=== PATIENT | male | born 1965 | race Caucasian/White ===

== ENCOUNTER 2025-06-22 16:04 | Outpatient (REF) | payer BC, SELFPAY ==
--- NOTE | 2025-06-22 16:07 | PFT_ITS ---
Flows: FEV1: 108 % of predicted at 4.09 L FVC: 113 % of predicted at 5.52 L FEV1/FVC: 74 % Bronchodilator response: Absent Volumes: Total lung capacity: 103 % of predicted at 7.71 L Residual volume: 102 % of predicted at 2.26 L Slow vital capacity: 102 % of predicted at 5.44 L Expiratory reserve volume: 113 % of predicted at 1.62 L Diffusion capacity: Normal Impression: No obstructive or restrictive ventilatory defect. No bronchodilator response. Normal pulmonary function test. MTDD
[2025-06-22 16:43] VITALS: PULSE 83
--- OUTSIDE RECORDS SUMMARY | 2025-06-22 20:05 | XMS_ITS ---
Author Name [facility] Organization Unknown History of Medication Use Medication Directions Dispensed Refills Start Date End Date Stat us sildenafil (VIAGRA) 50 MG tablet 08/28/2019 active atorvastatin (LIPITOR) 40 MG tablet 04/03/2018 active clopidogrel (PLAVIX) 75 mg tablet TAKE 1 TABLET BY MOUTH EVERY DAY. NEEDS APPOINTMENT WITH ORDER DESK CALLER FOR REFILLS 02/18/2018 12/21/2024 aborted aspirin 81 MG tablet TAKE 1 TABLET BY MOUTH EVERY DAY 02/17/2018 active metoprolol (TOPROL-XL) 25 MG 24 hr tablet TAKE 1/2 TABLET BY MOUTH EVERY DAY 02/17/2018 active lisinopril (PRINIVIL,ZESTRIL) 10 MG tablet TAKE 1 TABLET BY MOUTH EVERY DAY 02/16/2018 active nitroglycerin (NITROSTAT) 0.4 MG SL tablet nitroglycerin 0.4 mg sublingual tablet active Problems Problem Status Onset Date Problem Type Date of Resolution Source Decreased hearing of right ear active EncounterDiagnosisAct [facility] Immunizations Vaccine Date Source Lot Number Status Shingrix Recombinant Dose 02/20/2022 [facility] [id number] completed Shingrix Recombinant Dose 10/22/2021 [facility] [id number] completed Encounters Encounter Type Encounter Reason Primary Diagnosis Location Date Ambulatory Ear Complaint Unspecified hear ing loss, right ear [facility] 12/21/2024 Care Team Organization Name Specialty Phone Email Start Date End Da te [facility] Maxine Schmitz MD Primary Care 12/21/2024
--- OUTSIDE RECORDS SUMMARY | 2025-06-22 20:05 | XMS_ITS | Clinical Summary ---
Author Organization [facility] Address [address] [place] [id number] Phone Care Team Providers Care Network Lead Name Role Phone Maxine Schmitz MD Primary Care Provider [phone] Allergies No known active allergies Medications atorvastatin (LIPITOR) 40 MG tablet Take 40 mg by mouth every evening. 3 Active lisinopril (PRINIVIL,ZEST RIL) 20 MG tablet Take 1 tablet by mouth every morning. 3 Active metoprolol succinate (TOPROL-XL) 25 MG 24 hr tablet Take 1 tablet by mouth every morning. 3 Active nitroglycerin (NITROSTAT) 0.4 MG SL tablet nitroglycerin 0.4 mg sublingual tablet Active Active Problems No known active problems Social History Tobacco Use Types Packs/Day Years Used Date Smoking Tobacco: Never Assessed Education Answer Date Recorded Are you interested in more education? Not on oumar e 07/30/2023 Are you concerned about learning? Not on file 07/30/2023 No 07/30/2023 No 07/30/2023 Digital Access Answer Date Recorded No 07/30/2023 No 07/30/2023 Reliable internet access at home? Not on file 07/30/2023 Device with a working camera? Not on file Sex and Gender Information Value Date Recorded Sex Assigned at Not on file Legal Sex Male 5:25 PM EST Gender Identity Not on file Sexual Orientation Not on file Last Filed Vital Signs Vital Sign Reading Time Taken Comments Blood Pressure 137/91 07/30/2023 5:46 PM EST Pulse 71 07/30/2023 5:46 PM EST Temperature 36.9 C (98.4 F) 07/30/2023 5:46 PM EST Respiratory Rate 16 07/30/2023 5:46 PM EST Oxygen Saturation 96% 07/30/2023 5:46 PM EST Inhaled Oxygen Concentration - - Weight 99.8 kg (220 lb) 07/30/2023 5:46 PM EST Height 180.3 cm (5' 11 ) 07/30/2023 5:46 PM EST Body Mass Index 30.68 07/30/2023 5:46 PM EST Plan of Treatment Health Maintenance Due Date Last Done Comments Adult Td,Tdap Booster 1967 CREATININE LEVEL 1967 LIPID PANEL 1967 POTASSIUM LEVEL 1967 DEPRESSION SCREENING 1979 SMOKING Hx and SMOKELESS TOB ACCO SCREENING 1980 HEPATITIS C SCREENING 1985 HIV ONE-TIME SCREENING (18-6 5 YEARS) 1985 SCREENING FOR DIABETES 2002 COLOGUARD 2012 COLONOSCOPY 2012 COLORECTAL CANCER SCREENING 2012 FIT TEST 2012 FOBT 2012 SIGMOIDOSCOPY 2012 VIRTUAL COLONOSCOPY 2012 PNEUMOCOCCAL VACCINES (50+ y ears) (1 of 1 - PCV) 2017 ZOSTER VACCINES (1 of 2) 2017 INFLUENZA VACCINE (#1) 2025 COVID-19 VACCINE (1 - 2024-2 6 season) 2025 RSV VACCINE (1 - 1-dose 75+ series) 2042 HEPATITIS A VACCINES Aged Out No long er eligible based on patient's age to complete this topic HIB VACCINES Aged Out No longer eligi ble based on patient's age to complete this topic MENINGOCOCCAL VACCINES (ACWY) Aged Out No longer eligible based on patient's age to complete this topic MENINGOCOCCAL VACCINES (B) Aged Out N o longer eligible based on patient's age to complete this topic Medical Devices Not on file Insurance [facility] OUT [facility] PPO BLUE CROSS OUT OF STATE PPO BLUE CROSS OUT OF STATE PPO BLUE CROSS OUT OF STATE PPO BLUE CROSS OUT OF STATE PPO BLUE CROSS OUT OF STATE PPO Care Teams Network Lead Relationship Specialty Start Date End Date Maxine Schmitz MD [id number] [phone] PCP - General Family Medicine 07/30/23 Additional Source Comments The information contained in this document represents components of the legal health record. It is not the complete legal health record.[facility]
--- OUTSIDE RECORDS SUMMARY | 2025-06-22 20:06 | XMS_ITS | Data Portability ---
Author Organization [facility], Main Office Address [address] [place] [address] Care Team Providers Care Computer Systems Manager Name Role Phone KARAN PITTMAN Grinding Wheel Inspector JONG ROMAN Product Finisher [phone] NATHANAEL SMITH Product Finisher WILY HILL Primary Care Provider Assessment Encounter Date Assessment Date Assessment LastModified by Organization Details LastModified Time 02/01/2025 02/01/2025 Dyspnea Ordered: -NT-proBNP to assess for heart failure -Chest X-ray (2-view) to evaluate for pulmonary causes or cardiac silhouette changes -EKG to assess for ischemia or arrhythmia -Urinalysis to rule out systemic or infectious causes -Symptom: Positional air hunger, worse when supine, better when prone concerning for cardiac, diaphragmatic, or mechanical etiology -Ordered: Stress echocardiogram given history of CAD and atypical anginal equivalent symptoms (dyspnea without chest pain) -Will also get resting echo -Will consider sleep study and overnight O2 monitoring. -Also advised to call cardiology to discuss symptoms and see them for a visit. -Discussed with patient the signs/symptoms warranted for a return to office visit and/or an ER visit. Patient understood and agreed with the plan. Intolerant of Heat -Creatine kinase (CK) total to evaluate for statin-induced myopathy or inflammatory myopathy - No current B vitamin use rules out niacin-induced flushing -TSH/CBC/CMP done in PE, -Could consider ESR/CRP if sx persisted with pheo workup with 24hr metanephrine if symptoms persisted. Coronary Atherosclerosis -Renewed low-dose aspirin -Ongoing management with atorvastatin, metoprolol, lisinopril Allergic Rhinitis / Post-Nasal Drip -Started: Flonase Sensimist 2 sprays qHS 30 days -Started: Simply Saline daily use in the morning 30 days - If incomplete relief, consider adding loratadine or Josselin Follow-Up F/U in 2 months I have spent 45 minutes on this encounter. The time documented represents time spent on the day of the encounter preparing for and completing the visit. Time spent performing a physical exam, obtaining history from the patient, counseling/educati ng the patient in possible diagnosis and treatment options. This time is independent of any additional procedures/diagnos tic testing/interpreta tions. juan luiskar Not available 02/01/2025 12:43:26 04/11/2025 04/11/2025 Dyspnea / Atypic al Chest Pain: -Stat D-dimer (to evaluate for PE given travel history and ongoing symptoms). -Stat troponin (CAD risk, atypical chest pain, dyspnea). -Strong recommendation to call cinetechnician urgently for evaluation, given new chest pain. -Discussed emergency precautions: go to ER immediately if chest pain worsens, becomes persistent, or is associated with diaphoresis, syncope, or worsening dyspnea. -Sleep study with overnight O monitoring ordered. -Pulmonary Function Testing (PFTs) ordered to evaluate for mechanical or obstructive cause of dyspnea. Heat Intolerance / Systemic Symptoms -Sed rate (ESR) to complete pending labs. -24-hour urine metanephrines ordered to evaluate for pheochromocytoma. Allergic Rhinitis / Postnasal Drip -Prescribed Josselin daily for improved compliance. -Continue saline spray and may resume Flonase as tolerated. GERD / Lifestyle Contributions -Begin omeprazole 20 mg daily (OTC), 30 minutes before meals. -Lifestyle counseling: avoid alcohol, caffeine, nicotine, chocolate, spicy foods, garlic, onions, carbonated beverages, and acidic foods. Avoid lying down within 2 hours of meals. Sleep with head of bed elevated. -Counseled on limiting alcohol, particularly binge drinking, as a potential contributor to symptoms. Cardiovascular Risk Management -Continue aspirin, atorvastatin, metoprolol, lisinopril. -Reinforce importance of cardiology follow-up. Follow-Up -Telehealth in 2 months or sooner if symptoms persist or worsen. -Patient aware of ER precautions and agrees with the plan. [email or web address] Not available 04/11/2025 12:29:44 Plan of Treatment Reminders Order Date Submit Date Provider Last Modified By Organization Details Last Modified Time Details Appointments PE EST 2024 09:00A M Wily Hill MD Not available Not available Not available Lab meta neph rine + norm kamla ephr ine + 3-me thox ytyr [place] e pane l, 24h urin e 2024 025 IMTIAZ [facility], [address], [place], [address], 04/11/2025 11:16:59 meta neph rine , free , seru m or plas ma 2024 025 IMTIAZ [facility], [address], [place], [address], 04/17/2025 20:05:47 kavon chol [place]aca es, frac tion ated , urin e 2024 025 IMTIAZ [facility], [address], [place], [address], 04/11/2025 11:16:59 eryt hroc yte sedi ment atio n rate by west ergr en meth od 2024 025 IMTIAZ [facility] (Centralized Electronic Ordering - All Locations), Patient Can Go To The Location Of Their Choice, 04/11/2025 15:23:42 trop onin I, tiesha barron, perla zarate 2024 025 IMTIAZ [facility] (Centralized Electronic Ordering - All Locations), Patient Can Go To The Location Of Their Choice, 04/11/2025 11:17:14 D-tiesha topete, plas ofelia 2024 025 IMTIAZ [facility] (Centralized Electronic Ordering - All Locations), Patient Can Go To The Location Of Their Choice, 04/11/2025 15:23:41 CK (cre atin e bret se), tota l, seru m 2024 025 IMTIAZ [facility] (Centralized Electronic Ordering - All Locations), Patient Can Go To The Location Of Their Choice, 02/02/2025 06:07:43 pro BNP (pro B-ty pe natr iure tic pept teena) , seru m or plas ma 2024 025 IMTIAZ [facility] (Centralized Electronic Ordering - All Locations), Patient Can Go To The Location Of Their Choice, 02/02/2025 06:07:42 urin rupali is macr o (dip stic k) alexus guadalupe, urin e 2024 025 IMTIAZ [facility] (Centralized Electronic Ordering - All Locations), Patient Can Go To The Location Of Their Choice, 02/02/2025 06:07:42 lipi d alexus l, seru m 2023 024 [email or web address] [facility], [address], [place], [address], 08/09/2024 13:38:11 CBC w/ auto diff 2023 024 IMTIAZ [facility], [address], [place], [address], 01/01/2025 22:06:00 CMP, seru m or plas ma 2023 024 [email or web address] [facility] (Centralized Electronic Ordering - All Locations), Patient Can Go To The Location Of Their Choice, 09/17/2024 09:54:02 TSH, ultr a-se nsit james, seru m 2023 024 IMTIAZ [facility] (Centralized Electronic Ordering - All Locations), Patient Can Go To The Location Of Their Choice, 01/01/2025 22:06:02 PSA, seru m or plas ma 2023 024 [facility]MTIAZ [facility] (Centralized Electronic Ordering - All Locations), Patient Can Go To The Location Of Their Choice, 01/01/2025 22:06:01 magn esiu m, seru m or plas ma 2023 024 IMTIAZ [facility] (Centralized Electronic Ordering - All Locations), Patient Can Go To The Location Of Their Choice, [id number] 01/01/2025 22:06:03 lipi elliot aguilare l, seru m 2022 023 IMTIAZ [facility], [address], [place], [address], 03/18/2023 15:09:34 CBC w/ auto diff 2022 023 IMTIAZ [facility], [address], [place], [address], 03/18/2023 16:18:55 TSH, seru m or plas ma 2022 023 IMTIAZ [facility], [address], [place], [address], 03/18/2023 15:43:52 CMP, seru m or plas ma 2022 023 IMTIAZ [facility] (Centralized Electronic Ordering - All Locations), Patient Can Go To The Location Of Their Choice, 03/18/2023 15:09:31 magn esiu m, seru m or plas ma 2022 023 IMTIAZ [facility] (Centralized Electronic Ordering - All Locations), Patient Can Go To The Location Of Their Choice, 03/18/2023 15:09:35 Referral slee p medi cine refe rral - pls cons ider slee p stud y and over nigh t O2 carol miriam ng. 2024 025 [facility], [address], [place], [address], 04/11/2025 11:48:44 derm atol ogis t refe rral 2023 024 [email or web address] Not available 08/20/2024 09:04:[address] refe rral - Esta blis hed miguel angel ent need to get Foll ow up [place] nosc opy 2022 023 AMADOU [facility], [address] [place], [address], 03/25/2023 09:30:42 Procedures colo nosc opy scre enin g (PRO C) 2022 023 reji In-Office Order, Internal Use Only DO Not Attach Compendium DO Not Attach Compendium, Do Not Delete/merge, [id number] 03/25/2023 09:15:46 Surgeries None noble rded . Imaging PFT, comp lete 2024 025 reji [facility] (Imaging), [address] [place], [address], 04/14/2025 15:30:58 stre ss echo card iogr am 2024 025 [facility], [address] [place] [address], [address], [place], [address], 02/22/2025 14:25:36 XR, ches t, 2 view 2024 025 [facility], [address] [place], [address], 02/01/2025 13:14:58 elec troc ardi ogra m 2024 025 [email or web address] a In-Office Order, Internal Use Only DO Not Attach Compendium DO Not Attach Compendium, Do Not Delete/merge, [id number] 02/01/2025 11:19:35 US, echo card iogr am 2024 025 reji [facility], [address] [place] [address], [address], [place], [address], 02/07/2025 10:43:09 Medication Orders fexo fena dine 180 mg tabl et 2024 025 IMTIAZ [facility], [address] [place] [address], [address], 04/11/2025 11:16:57 omep portillo le 20 mg caps ule anthony yed rele ase 2024 025 [email or web address] os [facility], [address] [place] [address], [address], 05/09/2025 10:35:56 Flon ase Sens imis t 27.5 mcg/ actu atio n nasa l spra y,sofia spen ion 2024 025 [facility], [address] [place] [address], [address], 02/01/2025 11:14:21 Simp ly Sali ne 0.9 % nasa l spra y aero calvin 2024 025 [facility], [address] [place] [address], [address], 02/01/2025 11:14:21 Adul t Low Dose Aspi rin 81 mg tabl et,d elay ed rele ase 2024 025 [email or web address] [facility], [address] [place] [address], [address], 02/23/2025 11:28:52 keto cona zole 2 % topi daniel crea m 2024 025 [facility], [address] [place] [address], [address], 09/17/2024 15:54:12 vals rosey n 40 mg tabl et 2022 023 [email or web address] os [facility], [address] [place] [address], [address], 09/17/2024 15:23:22 Patient TargetsNo targets recorded. Patient Instructions Encounter Date Encounter Id Patient Instructions Last Modified By Organization Details Last Modified Time 10/15/2022 [id number] Well Visit 50 to 65: Care Instructions [email or web address] Not available 10/15/2022 16:04:13 learning about colon cancer ckokar Not available 10/15/2022 16:04:13 Starting a Weight-Loss Plan: Care Instructions [email or web address] Not available 10/15/2022 16:05:48 02/20/2024 [id number] Well Visit 50 to 65: Care Instructions [email or web address] Not available 02/20/2024 15:19:29 Prostate Cancer Screening ckokar Not available 02/20/2024 15:19:28 Starting a Weight-Loss Plan: Care Instructions [email or web address] Not available 02/20/2024 15:19:28 09/17/2024 [id number] high blood pressure: care instructions [email or web address] Not available 09/17/2024 15:54:10 learning about high blood pressure ckokar Not available 09/17/2024 15:54:10 02/01/2025 [id number] allergies: care instructions ckokar Not available 02/01/2025 11:00:21 04/11/2025 [id number] allergies: care instructions [email or web address] Not available 04/11/2025 11:16:55 methacholine challenge* [email or web address] Not available 04/11/2025 11:43:47 Reason for Referral Grinding Wheel Inspector Referral for Screening for malignant neoplasm of colon Established patient need to get Follow up Colonoscopy Referring Physician: Wily [facility] Medicine, Encounter Date: 10/15/2022 Freight Service Inspector Referral for M elanocytic nevus of skin Referring Physician: Wily Hill [facility] Medicine, Encounter Date: 02/20/2024 Sleep Medicine Referral for Dyspnea pls consider sleep study and overnight O2 monitoring. Referring Physician: Wily Hill [facility] Medicine, Encounter Date: 04/11/2025 Results Created Date Observation Date Name Description Value Unit Range Abnormal Flag Note LastModifiedBy Organization Detail LastModifiedTime 03/18/20 23 03/18/2023 COMPR EHENS JAMES METAB OLIC PANL glucose 108 mg/dL (70-99 ) high Not Available [facility] (Centralized Electronic Ordering - All Locations) Patient Can Go To The Location Of Their Choice, 03/18/2023 15:09:31 03/18/2003/18/2023 COMPR EHENS JAMES METAB OLIC PANL BUN 12 mg/dL (6-20) Not Available [facility] (Centralized Electronic Ordering - All Locations) Patient Can Go To The Location Of Their Choice, 03/18/2023 15:09:03/18/2003/18/2023 COMPR EHENS JAMES METAB OLIC PANL creatinine 1.1 mg/dL (0.7-1 .2) Not Available [facility] (Centralized Electronic Ordering - All Locations) Patient Can Go To The Location Of Their Choice, 03/18/2023 15:09:03/18/2003/18/2023 COMPR EHENS JAMES METAB OLIC PANL sodium 135 mmol/ L (133-1 45) Not Available [facility] (Centralized Electronic Ordering - All Locations) Patient Can Go To The Location Of Their Choice, 03/18/2023 15:09:31 03/18/2003/18/2023 COMPR EHENS JAMES METAB OLIC PANL potassium 4.1 mmol/ L (3.6-5 .2) Not Available [facility] (Centralized Electronic Ordering - All Locations) Patient Can Go To The Location Of Their Choice, 03/18/2023 15:09:31 03/18/2003/18/2023 COMPR EHENS JAMES METAB OLIC PANL chloride 103 mmol/ L (98-10 7) Not Available [facility] (Centralized Electronic Ordering - All Locations) Patient Can Go To The Location Of Their Choice, 03/18/2023 15:09:31 03/18/2003/18/2023 COMPR EHENS JAMES METAB OLIC PANL bicarbonate 24 mmol/ L (22-29 ) Not Available [facility] (Centralized Electronic Ordering - All Locations) Patient Can Go To The Location Of Their Choice, 03/18/2023 15:09:31 03/18/2003/18/2023 COMPR EHENS JAMES METAB OLIC PANL anion gap 8 (4-17) Not Available [facility] (Centralized Electronic Ordering - All Locations) Patient Can Go To The Location Of Their Choice, 03/18/2023 15:09:31 03/18/2003/18/2023 COMPR EHENS JAMES METAB OLIC PANL albumin 4.5 gm/dL (3.4-4 .8) Not Available [facility] (Centralized Electronic Ordering - All Locations) Patient Can Go To The Location Of Their Choice, 03/18/2023 15:09:31 03/18/2003/18/2023 COMPR EHENS JAMES METAB OLIC PANL calcium 9.2 mg/dL (8.6-1 0.5) Not Available [facility] (Centralized Electronic Ordering - All Locations) Patient Can Go To The Location Of Their Choice, 03/18/2023 15:09:03/18/2003/18/2023 COMPR EHENS JAMES METAB OLIC PANL bilirubin,to theron 1.3 mg/dL (0-1.2 ) high Not Available [facility] (Centralized Electronic Ordering - All Locations) Patient Can Go To The Location Of Their Choice, 03/18/2023 15:09:03/18/2003/18/2023 COMPR EHENS JAMES METAB OLIC PANL total protein 6.4 gm/dL (6.2-8 .2) Not Available [facility] (Centralized Electronic Ordering - All Locations) Patient Can Go To The Location Of Their Choice, 03/18/2023 15:09:31 03/18/2003/18/2023 COMPR EHENS JAMES METAB OLIC PANL Ag ratio 2.4 Not Available [facility] (Centralized Electronic Ordering - All Locations) Patient Can Go To The Location Of Their Choice, 03/18/2023 15:09:31 03/18/2003/18/2023 COMPR EHENS JAMES METAB OLIC PANL AST 32 U/L (0-40) Not Available [facility] (Centralized Electronic Ordering - All Locations) Patient Can Go To The Location Of Their Choice, 03/18/2023 15:09:31 03/18/2003/18/2023 COMPR EHENS JAMES METAB OLIC PANL alk phos 114 U/L (40-12 9) Not Available [facility] (Centralized Electronic Ordering - All Locations) Patient Can Go To The Location Of Their Choice, 03/18/2023 15:09:31 03/18/2003/18/2023 COMPR EHENS JAMES METAB OLIC PANL ALT 51 U/L (0-41) high Not Available [facility] (Centralized Electronic Ordering - All Locations) Patient Can Go To The Location Of Their Choice, 03/18/2023 15:09:31 03/18/20 23 03/18/2023 COMPR EHENS JAMES METAB OLIC PANL estimated GFR creatinine 84 mL/mi n/1.7 3_M2 Creat inine based estim ated glome rular filtr ation (eGFR ) in adult s is calcu lated using the Natio nal Kidne y Found ation recom rebecca d 2020 CKD-E PI equat ion. Estim ates GFR from serum creat inine , age and sex. Not Available [facility] (Centralized Electronic Ordering - All Locations) Patient Can Go To The Location Of Their Choice, 03/18/2023 15:09:31 03/18/2003/18/2023 LIPID PANEL cholesterol, total 92 mg/dL (<200) Not Available [facility] ([facility] - All Locations) Patient Can Go To The Location Of Their Choice, 03/18/2023 15:09:34 03/18/2003/18/2023 LIPID PANEL triglyceride 86 mg/dL (<150) Not Available [facility]) Patient Can Go To The Location Of Their Choice, 03/18/2023 15:09:34 03/18/2003/18/2023 LIPID PANEL HDL chol 36 mg/dL (>39) low Not Available [facility] (Centralized Electronic Ordering - All Locations) Patient Can Go To The Location Of Their Choice, 03/18/2023 15:09:34 03/18/20 23 03/18/2023 LIPID PANEL LDL cholesterol, calculated 39 mg/dL (0-130 ) Not Available [facility] (Centralized Electronic Ordering - All Locations) Patient Can Go To The Location Of Their Choice, 03/18/2023 15:09:34 03/18/2003/18/2023 LIPID PANEL non HDL cholesterol (calc) 56 mg/dL (<160) Not Available [facility] ([facility] Ordering - All Locations) Patient Can Go To The Location Of Their Choice, 03/18/2023 15:09:34 03/18/2003/18/2023 MAGNE SIUM magnesium 2.1 mg/dL (1.6-2 .3) Not Available [facility] (Centralized Electronic Ordering - All Locations) Patient Can Go To The Location Of Their Choice, 03/18/2023 15:09:35 03/18/2003/18/2023 TSH WITH REFLE X TO FT4 TSH 2.27 uIU/m L (0.4-4 .2) Not Available [facility] (Centralized Electronic Ordering - All Locations) Patient Can Go To The Location Of Their Choice, 03/18/2023 15:43:52 03/18/2003/18/2023 COMPL ETE CBC WITH DIFF WBC 7.0 K/mm3 (4.0-1 1.0) Not Available [facility] (Centralized Electronic Ordering - All Locations) Patient Can Go To The Location Of Their Choice, 03/18/2023 16:18:55 03/18/2003/18/2023 COMPL ETE CBC WITH DIFF RBC 4.92 M/mm3 (4.70- 6.10) Not Available [facility] (Centralized Electronic Ordering - All Locations) Patient Can Go To The Location Of Their Choice, 03/18/2023 16:18:55 03/18/2003/18/2023 COMPL ETE CBC WITH DIFF HGB 15.4 gm/dL (13.7- 17.1) Not Available [facility] (Centralized Electronic Ordering - All Locations) Patient Can Go To The Location Of Their Choice, 03/18/2023 16:18:55 03/18/2003/18/2023 COMPL ETE CBC WITH DIFF HCT 43.7 % (40.5- 50.0) Not Available [facility] (Centralized Electronic Ordering - All Locations) Patient Can Go To The Location Of Their Choice, 03/18/2023 16:18:55 03/18/2003/18/2023 COMPL ETE CBC WITH DIFF MCV 88.8 fL (80.0- 94.0) Not Available [facility] (Centralized Electronic Ordering - All Locations) Patient Can Go To The Location Of Their Choice, 03/18/2023 16:18:55 03/18/2003/18/2023 COMPL ETE CBC WITH DIFF MCH 31.3 pg (27.0- 34.0) Not Available [facility] (Centralized Electronic Ordering - All Locations) Patient Can Go To The Location Of Their Choice, 03/18/2023 16:18:55 03/18/2003/18/2023 COMPL ETE CBC WITH DIFF MCHC 35.2 g/dL (33.0- 37.0) Not Available [facility] (Centralized Electronic Ordering - All Locations) Patient Can Go To The Location Of Their Choice, 03/18/2023 16:18:55 03/18/2003/18/2023 COMPL ETE CBC WITH DIFF plt 174 K/mm3 (150-4 60) Not Available [facility] (Centralized Electronic Ordering - All Locations) Patient Can Go To The Location Of Their Choice, 03/18/2023 16:18:55 03/18/2003/18/2023 COMPL ETE CBC WITH DIFF RDW-SD 41.3 fL (<47.0 ) Not Available [facility] (Centralized Electronic Ordering - All Locations) Patient Can Go To The Location Of Their Choice, 03/18/2023 16:18:55 03/18/2003/18/2023 COMPL ETE CBC WITH DIFF MPV 11.0 fL (9.4-1 2.4) Not Available [facility] (Centralized Electronic Ordering - All Locations) Patient Can Go To The Location Of Their Choice, 03/18/2023 16:18:55 03/18/2003/18/2023 COMPL ETE CBC WITH DIFF automated NRBC 0.0 #/100 _WBC' s Not Available [facility] (Centralized Electronic Ordering - All Locations) Patient Can Go To The Location Of Their Choice, 03/18/2023 16:18:55 03/18/2003/18/2023 COMPL ETE CBC WITH DIFF abs. NRBC 0.0 K/mm3 Not Available [facility] (Centralized Electronic Ordering - All Locations) Patient Can Go To The Location Of Their Choice, 03/18/2023 16:18:55 03/18/2003/18/2023 COMPL ETE CBC WITH DIFF neut # 4.4 K/mm3 (1.3-7 .0) Not Available [facility] (Centralized Electronic Ordering - All Locations) Patient Can Go To The Location Of Their Choice, 03/18/2023 16:18:55 03/18/2003/18/2023 COMPL ETE CBC WITH DIFF lymph # 1.6 K/mm3 (0.8-3 .1) Not Available [facility] (Centralized Electronic Ordering - All Locations) Patient Can Go To The Location Of Their Choice, 03/18/2023 16:18:55 03/18/2003/18/2023 COMPL ETE CBC WITH DIFF mono# 0.7 K/mm3 (0.4-1 .3) Not Available [facility] (Centralized Electronic Ordering - All Locations) Patient Can Go To The Location Of Their Choice, 03/18/2023 16:18:55 03/18/2003/18/2023 COMPL ETE CBC WITH DIFF eo # 0.2 K/mm3 (0.0-0 .4) Not Available [facility] (Centralized Electronic Ordering - All Locations) Patient Can Go To The Location Of Their Choice, 03/18/2023 16:18:55 03/18/2003/18/2023 COMPL ETE CBC WITH DIFF baso # 0.1 K/mm3 (0.0-0 .1) Not Available [facility] (Centralized [facility] Ordering - All Locations) Patient Can Go To The Location Of Their Choice, 03/18/2023 16:18:55 03/18/2003/18/2023 COMPL ETE CBC WITH DIFF abs. imm gran 0.0 K/mm3 Not Available [facility] ([facility] - All Locations) Patient Can Go To The Location Of Their Choice, 03/18/2023 16:18:55 03/18/2003/18/2023 COMPL ETE CBC WITH DIFF neut 63.1 % (44-76 ) Not Available [facility] (Centralized [facility] Ordering - All Locations) Patient Can Go To The Location Of Their Choice, 03/18/2023 16:18:55 03/18/2003/18/2023 COMPL ETE CBC WITH DIFF lymph 22.8 % (15-43 ) Not Available [facility] (Centralized [facility] Ordering - All Locations) Patient Can Go To The Location Of Their Choice, 03/18/2023 16:18:55 03/18/2003/18/2023 COMPL ETE CBC WITH DIFF monocyte 9.8 % (4.5-1 0.5) Not Available [facility] (Centralized [facility] Ordering - All Locations) Patient Can Go To The Location Of Their Choice, 03/18/2023 16:18:55 03/18/2003/18/2023 COMPL ETE CBC WITH DIFF eo 3.0 % (0-6) Not Available [facility] (Centralized Electronic Ordering - All Locations) Patient Can Go To The Location Of Their Choice, 03/18/2023 16:18:55 03/18/2003/18/2023 COMPL ETE CBC WITH DIFF baso 0.9 % (0-2) Not Available [facility] (Centralized Electronic Ordering - All Locations) Patient Can Go To The Location Of Their Choice, 03/18/2023 16:18:55 03/18/2003/18/2023 COMPL ETE CBC WITH DIFF imm gran 0.4 % Not Available [facility] (Centralized Electronic Ordering - All Locations) Patient Can Go To The Location Of Their Choice, 03/18/2023 16:18:55 03/18/2003/19/2023 HAPTO GLOBI N haptoglobin 109 mg/dL (30-20 0) Not Available [facility] (Centralized [facility] Ordering - All Locations) Patient Can Go To The Location Of Their Choice, 03/19/2023 06:26:26 03/18/2003/19/2023 LDH LDH 187 U/L (94-25 0) Sampl e sligh tly hemol yzed. Resul ts may be false ly eleva guilherme due to hemol ysis. Not Available [facility] (Centralized Electronic Ordering - All Locations) Patient Can Go To The Location Of Their Choice, 03/19/2023 06:26:27 03/18/2003/19/2023 RETIC ULOCY TE COUNT retic % 2.5 % (0.9-2 .1) high Not Available [facility] (Centralized Electronic Ordering - All Locations) Patient Can Go To The Location Of Their Choice, 03/19/2023 06:33:01 03/18/2003/19/2023 RETIC ULOCY TE COUNT reticulocyte count, corrected 2.4 % (0.9-2 .1) high Not Available [facility] (Centralized Electronic Ordering - All Locations) Patient Can Go To The Location Of Their Choice, 03/19/2023 06:33:01 03/18/2003/19/2023 RETIC ULOCY TE COUNT reticulocyte production index 2.4 % (1.0-2 .0) high Not Available [facility] (Centralized Electronic Ordering - All Locations) Patient Can Go To The Location Of Their Choice, 03/19/2023 06:33:01 03/18/2003/19/2023 TOTAL AND DIREC T BILIR UBIN bili total (with direct) 1.3 mg/dL (0-1.2 ) high Not Available [facility] (Centralized Electronic Ordering - All Locations) Patient Can Go To The Location Of Their Choice, 03/19/2023 07:08:08 03/18/2003/19/2023 TOTAL AND DIREC T BILIR UBIN bilirubin, direct 0.3 mg/dL (0-0.3 ) Not Available [facility] (Centralized Electronic Ordering - All Locations) Patient Can Go To The Location Of Their Choice, 03/19/2023 07:08:08 03/18/2003/19/2023 TOTAL AND DIREC T BILIR UBIN indirect bilirubin 1.0 mg/dL (0.0-0 .7) high Not Available [facility] (Centralized Electronic Ordering - All Locations) Patient Can Go To The Location Of Their Choice, 03/19/2023 07:08:08 03/18/2003/19/2023 HEMOG LOBIN A1C hemoglobin A1C 5.0 % (4.0-5 .6) MONIT ORING : In known diabe tic patie nts, hemog lobin A1c targe ts shoul d be discu ssed with healt h care provi arnold. DIAGN OSTIC USE: The Ameri can Diabe daisy Assoc iatio n (ADA) and the World Healt h Organ izati on (WHO) recom mend the use of HbA1c to diagn ose diabe daisy using a thres hold of 6.5%. Patie nts who have an HbA1c betwe en 5.7% and 6.4% are consi dered at incre ased risk for devel oping diabe daisy in the twan TURNERCATRACHITA ON: False ly low HbA1c resul ts may be obser valeria in patie nts with hemol ytic anemi a, homoz ygous forms of abnor mal hemog lobin (e.g. SS, CC, SC), pregn chioma, recen t blood loss or hemog lobin F great er than 7%. Fruct osami ne may be used as an alter angel test in these cases . REFER ENCE: ADA: [facility] ards of Medic al Care in Diabe daisy 2019, The Journ al of Clini daniel and Appli ed [facility] and Educa tion Volum e 43, Suppl ement 1 Not Available [facility] (Centralized Electronic Ordering - All Locations) Patient Can Go To The Location Of Their Choice, 03/19/2023 08:50:07 09/02/1909/02/2023 GGTP ggtp 35 U/L (8-61) Not Available [facility] (Centralized Electronic Ordering - All Locations) Patient Can Go To The Location Of Their Choice, 09/02/2023 23:09:00 09/02/1909/02/2023 HEPAT IC FUNCT ION PANEL bilirubin,to theron 1.1 mg/dL (0-1.2 ) Not Available [facility] (Centralized Electronic Ordering - All Locations) Patient Can Go To The Location Of Their Choice, 09/02/2023 23:09:02 09/02/1909/02/2023 HEPAT IC FUNCT ION PANEL bilirubin, direct 0.3 mg/dL (0-0.3 ) Not Available [facility] (Centralized Electronic Ordering - All Locations) Patient Can Go To The Location Of Their Choice, 09/02/2023 23:09:02 09/02/1909/02/2023 HEPAT IC FUNCT ION PANEL indirect bilirubin 0.8 mg/dL (0.0-0 .7) high Not Available [facility] (Centralized Electronic Ordering - All Locations) Patient Can Go To The Location Of Their Choice, 09/02/2023 23:09:02 09/02/19 24 09/02/2023 HEPAT IC FUNCT ION PANEL albumin 4.9 gm/dL (3.4-4 .8) high Not Available [facility] (Centralized Electronic Ordering - All Locations) Patient Can Go To The Location Of Their Choice, 09/02/2023 23:09:02 09/02/19 24 09/02/2023 HEPAT IC FUNCT ION PANEL AST 39 U/L (0-40) Not Available [facility] (Centralized Electronic Ordering - All Locations) Patient Can Go To The Location Of Their Choice, 09/02/2023 23:09:02 09/02/19 24 09/02/2023 HEPAT IC FUNCT ION PANEL ALT 61 U/L (0-41) high Not Available [facility] (Centralized Electronic Ordering - All Locations) Patient Can Go To The Location Of Their Choice, 09/02/2023 23:09:02 09/02/19 24 09/02/2023 HEPAT IC FUNCT ION PANEL alk phos 123 U/L (40-12 9) Not Available [facility] (Centralized Electronic Ordering - All Locations) Patient Can Go To The Location Of Their Choice, 09/02/2023 23:09:02 09/02/1909/02/2023 HEPAT IC FUNCT ION PANEL total protein 7.2 gm/dL (6.2-8 .2) Not Available [facility] (Centralized Electronic Ordering - All Locations) Patient Can Go To The Location Of Their Choice, 09/02/2023 23:09:02 09/03/1909/04/2023 URINE BILIR UBIN urine bilirubin NEGATI VE (neg) Not Available [facility] (Centralized Electronic Ordering - All Locations) Patient Can Go To The Location Of Their Choice, 09/04/2023 02:01:52 12/29/1912/29/2024 CMP14 (REFL EX HGB A1C) glucose 107 mg/dL 70-99 above high normal Not Available [facility] ([facility]) [address] [facility], [place], [address], 01/01/2025 22:05:59 12/29/19 25 12/29/2024 CMP14 (REFL EX HGB A1C) hemoglobin A1C 5.4 % 4.8-5. 6 normal Predi abete s: 5.7 - 6.4 Diabe daisy: >6.4 Glyce ana m contr ol for adult s with diabe daisy: <7.0 Not Available [facility] ([facility]) [address] [place], [address], 01/01/2025 22:05:59 12/29/19 25 12/29/2024 CMP14 (REFL EX HGB A1C) BUN 13 mg/dL 6-24 normal Not Available [facility] ([facility]) [address] [place], [address], 01/01/2025 22:05:59 12/29/19 25 12/29/2024 CMP14 (REFL EX HGB A1C) creatinine 0.95 mg/dL 0.76-1 .27 normal Not Available [facility] ([facility]) [address] [place], [address], 01/01/2025 22:05:59 12/29/19 25 12/29/2024 CMP14 (REFL EX HGB A1C) eGFR 93 mL/mi n/1.7 3 >59 normal Not Available [facility] ([facility]) [address] [place], [address], 01/01/2025 22:05:59 12/29/19 25 12/29/2024 CMP14 (REFL EX HGB A1C) BUN/creatini ne ratio 14 9-20 normal Not Available [facility] ([facility]) [address] [place], [address], 01/01/2025 22:05:59 12/29/19 25 12/29/2024 CMP14 (REFL EX HGB A1C) sodium 141 mmol/ L 134-14 4 normal Not Available [facility] ([facility]) [address] [place], [address], 01/01/2025 22:05:59 12/29/19 25 12/29/2024 CMP14 (REFL EX HGB A1C) potassium 4.4 mmol/ L 3.5-5. 2 normal Not Available [facility] ([facility]) [address] [place], [address], 01/01/2025 22:05:59 12/29/19 25 12/29/2024 CMP14 (REFL EX HGB A1C) chloride 106 mmol/ L 96-106 normal Not Available [facility] ([facility]) [address] [place], [address], 01/01/2025 22:05:59 12/29/19 25 12/29/2024 CMP14 (REFL EX HGB A1C) carbon dioxide, total 17 mmol/ L 20-29 below low normal Not Available [facility] ([facility]) [address] [place], [address], 01/01/2025 22:05:59 12/29/19 25 12/29/2024 CMP14 (REFL EX HGB A1C) calcium 9.2 mg/dL 8.7-10 .2 normal Not Available [facility] ([facility]) [address] [place], [address], 01/01/2025 22:05:59 12/29/19 25 12/29/2024 CMP14 (REFL EX HGB A1C) protein, total 6.4 g/dL 6.0-8. 5 normal Not Available [facility] ([facility]) [address] [place], [address], 01/01/2025 22:05:59 12/29/19 25 12/29/2024 CMP14 (REFL EX HGB A1C) albumin 4.1 g/dL 3.8-4. 9 normal Not Available [facility] ([facility]) [address] [place], [address], 01/01/2025 22:05:59 12/29/19 25 12/29/2024 CMP14 (REFL EX HGB A1C) globulin, total 2.3 g/dL 1.5-4. 5 Not Available [facility] ([facility]) [address] [place], [address], 01/01/2025 22:05:59 12/29/19 25 12/29/2024 CMP14 (REFL EX HGB A1C) bilirubin, total 0.8 mg/dL 0.0-1. 2 normal Not Available [facility] ([facility]) [address] [place], [address], 01/01/2025 22:05:59 12/29/19 25 12/29/2024 CMP14 (REFL EX HGB A1C) alkaline phosphatase 102 IU/L 44-121 normal Not Available [facility] ([facility]) [address] [place], [address], 01/01/2025 22:05:59 12/29/19 25 12/29/2024 CMP14 (REFL EX HGB A1C) AST (SGOT) 28 IU/L 0-40 normal Not Available [facility] ([facility]) [address] [place], [address], 01/01/2025 22:05:59 12/29/19 25 12/29/2024 CMP14 (REFL EX HGB A1C) ALT (SGPT) 48 IU/L 0-44 above high normal Not Available [facility] ([facility]) [address] [place], [address], 01/01/2025 22:05:59 12/29/19 25 12/28/2024 CBC WITH DIFFE RENTI AL/PL ATELE T WBC 6.9 x10e3 /uL 3.4-10 .8 normal Not Available [facility] ([facility]) [address] [place], [address], 01/01/2025 22:06:00 12/29/19 25 12/28/2024 CBC WITH DIFFE RENTI AL/PL ATELE T RBC 4.90 x10e6 /uL 4.14-5 .80 normal Not Available [facility] ([facility]) [address] [place], [address], 01/01/2025 22:06:00 12/29/19 25 12/28/2024 CBC WITH DIFFE RENTI AL/PL ATELE T hemoglobin 15.3 g/dL 13.0-1 7.7 normal Not Available [facility] ([facility]) [address] [place], [address], 01/01/2025 22:06:00 12/29/19 25 12/28/2024 CBC WITH DIFFE RENTI AL/PL ATELE T hematocrit 44.6 % 37.5-5 1.0 normal Not Available [facility] ([facility]) [address] [place], [address], 01/01/2025 22:06:00 12/29/19 25 12/28/2024 CBC WITH DIFFE RENTI AL/PL ATELE T MCV 91 fL 79-97 normal Not Available [facility] ([facility]) [address] [place], [address], 01/01/2025 22:06:00 12/29/19 25 12/28/2024 CBC WITH DIFFE RENTI AL/PL ATELE T MCH 31.2 pg 26.6-3 3.0 normal Not Available [facility] ([facility]) [address] [place], [address], 01/01/2025 22:06:00 12/29/19 25 12/28/2024 CBC WITH DIFFE RENTI AL/PL ATELE T MCHC 34.3 g/dL 31.5-3 5.7 normal Not Available [facility] ([facility]) [address] [place], [address], 01/01/2025 22:06:00 12/29/19 25 12/28/2024 CBC WITH DIFFE RENTI AL/PL ATELE T RDW 12.9 % 11.6-1 5.4 Not Available [facility] ([facility]) [address] [facility], [place], [address], 01/01/2025 22:06:00 12/29/19 25 12/28/2024 CBC WITH DIFFE RENTI AL/PL ATELE T platelets 187 x10e3 /uL 150-45 0 normal Not Available [facility] ([facility]) [address] [facility], [place], [address], 01/01/2025 22:06:00 12/29/19 25 12/28/2024 CBC WITH DIFFE RENTI AL/PL ATELE T neutrophils 60 % not estab. normal Not Available [facility] ([facility]) [address] [facility], [place], [address], 01/01/2025 22:06:00 12/29/19 25 12/28/2024 CBC WITH DIFFE RENTI AL/PL ATELE T lymphs 25 % not estab. normal Not Available [facility] ([facility]) [address] [place], [address], 01/01/2025 22:06:00 12/29/19 25 12/28/2024 CBC WITH DIFFE RENTI AL/PL ATELE T monocytes 10 % not estab. normal Not Available [facility] ([facility]) [address] [facility], [place], [address], 01/01/2025 22:06:00 12/29/19 25 12/28/2024 CBC WITH DIFFE RENTI AL/PL ATELE T eos 4 % not estab. normal Not Available [facility] ([facility]) [address] [facility], [place], [address], 01/01/2025 22:06:00 12/29/19 25 12/28/2024 CBC WITH DIFFE RENTI AL/PL ATELE T basos 1 % not estab. normal Not Available [facility] ([facility]) [address] [facility], [place], [address], 01/01/2025 22:06:00 12/29/19 25 12/28/2024 CBC WITH DIFFE RENTI AL/PL ATELE T immature cells DIESEL TRAILER MECHANIC Not Available [facility] ([facility]) [address] [facility], [place], [address], 01/01/2025 22:06:00 12/29/19 25 12/28/2024 CBC WITH DIFFE RENTI AL/PL ATELE T neutrophils (absolute) 4.2 x10e3 /uL 1.4-7. 0 normal Not Available [facility] ([facility]) [address] [facility], [place], [address], 01/01/2025 22:06:00 12/29/19 25 12/28/2024 CBC WITH DIFFE RENTI AL/PL ATELE T lymphs (absolute) 1.7 x10e3 /uL 0.7-3. 1 normal Not Available [facility] ([facility]) [address] [place], [address], 01/01/2025 22:06:00 12/29/19 25 12/28/2024 CBC WITH DIFFE RENTI AL/PL ATELE T monocytes(ab solute) 0.7 x10e3 /uL 0.1-0. 9 normal Not Available [facility] ([facility]) [address] [place], [address], 01/01/2025 22:06:00 12/29/19 25 12/28/2024 CBC WITH DIFFE RENTI AL/PL ATELE T eos (absolute) 0.3 x10e3 /uL 0.0-0. 4 normal Not Available [facility] ([facility]) [address] [place], [address], 01/01/2025 22:06:00 12/29/19 25 12/28/2024 CBC WITH DIFFE RENTI AL/PL ATELE T baso (absolute) 0.1 x10e3 /uL 0.0-0. 2 normal Not Available [facility] ([facility]) [address] [place], [address], 01/01/2025 22:06:00 12/29/19 25 12/28/2024 CBC WITH DIFFE RENTI AL/PL ATELE T immature granulocytes 0 % not estab. Not Available [facility] ([facility]) [address] [place], [address], 01/01/2025 22:06:00 12/29/19 25 12/28/2024 CBC WITH DIFFE RENTI AL/PL ATELE T immature grans (abs) 0.0 x10e3 /uL 0.0-0. 1 Not Available [facility] ([facility]) [address] [place], [address], 01/01/2025 22:06:00 12/29/19 25 12/28/2024 CBC WITH DIFFE RENTI AL/PL ATELE T NRBC DIESEL TRAILER MECHANIC Not Available [facility] ([facility]) [address] [place], [address], 01/01/2025 22:06:00 12/29/19 25 12/28/2024 CBC WITH DIFFE RENTI AL/PL ATELE T hematology comments: DIESEL TRAILER MECHANIC Not Available [facility] ([facility]) [address] [place], [address], 01/01/2025 22:06:00 12/29/19 25 12/29/2024 LIPID PANEL cholesterol, total 103 mg/dL 100-19 9 normal Not Available [facility] ([facility]) [address] [place], [address], 01/01/2025 22:06:01 12/29/19 25 12/29/2024 LIPID PANEL triglyceride s 87 mg/dL 0-149 normal Not Available [facility] ([facility]) [address] [place], [address], 01/01/2025 22:06:01 12/29/19 25 12/29/2024 LIPID PANEL HDL cholesterol 38 mg/dL >39 below low normal Not Available [facility] ([facility]) [address] [facility], [place], [address], 01/01/2025 22:06:01 12/29/19 25 12/29/2024 LIPID PANEL VLDL cholesterol daniel 17 mg/dL 5-40 Not Available [facility] ([facility]) [address] [facility] [place], [address], 01/01/2025 22:06:01 12/29/19 25 12/29/2024 LIPID PANEL LDL chol calc ([facility]) 48 mg/dL 0-99 Not Available [facility] ([facility]) [address] [place], [address], 01/01/2025 22:06:01 12/29/19 25 12/29/2024 LIPID PANEL LDL calc comment: DIESEL TRAILER MECHANIC Not Available [facility] ([facility]) [address] [place], [address], 01/01/2025 22:06:01 12/29/19 25 12/28/2024 PSA TOTAL (REFL EX TO FREE) reflex criteria Commen t The perce nt free PSA is perfo rmed on a refle x basis only when the total PSA is betwe en 4.0 and 10.0 ng/mL . Not Available [facility] ([facility]) [address] [facility], [place], [address], 01/01/2025 22:06:01 12/29/19 25 12/29/2024 PSA TOTAL (REFL EX TO FREE) prostate specific Ag 1.7 NG/mL 0.0-4. 0 normal Ten ECLIA metho dolog y. Accor ding to the Ameri can Urolo gical Assoc iatio n, Serum PSA shoul d decre ase and remai n at undet ectab le level s after radic al prost atect stepan. The AUA defin es bioch emica l recur rence as an initi al PSA value 0.2 ng/mL or great er follo wed by a subse quent confi rmato ry PSA value 0.2 ng/mL or great er. Value s obtai emmanuel with diffe rent assay metho ds or kits canno t be used inter hurley eably . Resul ts canno t be inter prete d as absol [place] evide nce of the prese nce or absen [facility] se. Not Available [facility] ([facility]) [address] [place], [address], 01/01/2025 22:06:01 12/29/19 25 12/29/2024 TSH RFX ON ABNOR MAL TO FREE T4 TSH 3.800 uIU/m L 0.450- 4.500 normal Not Available [facility] ([facility]) [address] [place], [address], 01/01/2025 22:06:02 12/29/19 25 01/01/2025 MAGNE SIUM magnesium 1.9 mg/dL 1.6-2. 3 normal Not Available [facility] ([facility]) [address] [place], [address], 01/01/2025 22:06:03 02/02/20 25 02/01/2025 URINA LYSIS , ROUTI NE specific gravity 1.024 1.005- 1.030 normal Not Available [facility] ([facility]) [address] [place], [address], 02/02/2025 06:07:42 02/02/20 25 02/01/2025 URINA LYSIS , ROUTI NE pH 6.5 5.0-7. 5 normal Not Available [facility] ([facility]) [address] [place], [address], 02/02/2025 06:07:42 02/02/20 25 02/01/2025 URINA LYSIS , ROUTI NE urine-color Yellow yellow Not Available [facility] ([facility]) [address] [facility], [place], [address], 02/02/2025 06:07:42 02/02/20 25 02/01/2025 URINA LYSIS , ROUTI NE appearance Clear clear Not Available [facility] ([facility]) [address] [facility], [place], [address], 02/02/2025 06:07:42 02/02/20 25 02/01/2025 URINA LYSIS , ROUTI NE WBC esterase Negati ve negati ve Not Available [facility] ([facility]) [address] [place], [address], 02/02/2025 06:07:42 02/02/20 25 02/01/2025 URINA LYSIS , ROUTI NE protein Negati ve negati ve/tra ce Not Available [facility] ([facility]) [address] [place], [address], 02/02/2025 06:07:42 02/02/20 25 02/01/2025 URINA LYSIS , ROUTI NE glucose Negati ve negati ve Not Available [facility] ([facility]) [address] [facility], [place], [address], 02/02/2025 06:07:42 02/02/20 25 02/01/2025 URINA LYSIS , ROUTI NE ketones Negati ve negati ve Not Available [facility] ([facility]) [address] [place], [address], 02/02/2025 06:07:42 02/02/20 25 02/01/2025 URINA LYSIS , ROUTI NE occult blood Negati ve negati ve Not Available [facility] ([facility]) [address] [place], [address], 02/02/2025 06:07:42 02/02/2016 0202/01/2025 URINA LYSIS , ROUTI NE bilirubin Negati ve negati ve Not Available [facility] ([facility]) [address] [place], [address], 02/02/2025 06:07:42 02/02/20 25 02/01/2025 URINA LYSIS , ROUTI NE urobilinogen ,semi-qn 0.2 mg/dL 0.2-1. 0 normal Not Available [facility] ([facility]) [address] [place], [address], 02/02/2025 06:07:42 02/02/20 25 02/01/2025 URINA LYSIS , ROUTI NE nitrite, urine Negati ve negati ve Not Available [facility] ([facility]) [address] [place], [address], 02/02/2025 06:07:42 02/02/2002/01/2025 URINA LYSIS , ROUTI NE microscopic examination Commen t Micro scopi c not indic ated and not perfo rmed. Not Available [facility] ([facility]) [address] [place], [address], 02/02/2025 06:07:42 02/02/2002/01/2025 NT-TN OBNP nt-probnp 39 pg/mL 0-210 The follo wing cut-p oints have been sugge sted for the use of proBN P for the diagn ostic evalu ation of heart failu re (HF) in patie nts with acute dyspn ea: Modal ity Age Optim al Cut (year s) Point ----- ----- ----- ----- ----- ----- ----- ----- ----- ----- ---- Diagn osis (rule in HF) <50 450 pg/mL 50 - 75 900 pg/mL >75 1800 pg/mL Exclu ion (rule out HF) Age indep enden t 300 pg/mL Not Available [facility] ([facility]) [address] [facility], [place], [address], 02/02/2025 06:07:42 02/02/20 25 02/01/2025 CREAT INE KAYLA E,TOT AL creatine kinase,total 78 U/L 41-331 normal Not Available [facility] ([facility]) [address] [facility], [place], [address], 02/02/2025 06:07:43 02/02/20 25 02/03/2025 C-KYLE CTIVE PROTE IN, QUANT C-reactive protein, quant <1 mg/L 0-10 Not Available [facility] ([facility]) [address] [facility], [place], [address], 02/03/2025 16:06:35 02/02/20 25 02/02/2025 BALA EN AUTHO RIZAT ION written authorizatio n Commen t Bala en Autho rizat ion Recei valeria. Autho rizat ion recei valeria from [facility] for Link Reque st on 02-02 Logge d by Jonatan zarate Not Available [facility] ([facility]) [address] [facility], [place], [address], 02/03/2025 16:06:36 04/11/20 25 04/11/2025 D-DIM ER D-dimer 0.25 mg/L_ feu <1.01 The manuf actur er recom mends that a d-Dim er value of <0.5 FEU mg/L can be used in conju nctio n with clini daniel crite marcial to help exclu de Deep Vein Throm bosis (DVT) and/o r Pulmo nary Embol ism (PE) in patie nts with a low prete st proba bilit y. Not Available [facility] [address], [place], [address], 04/11/2025 15:23:41 04/11/20 25 04/11/2025 SEDIM ENTAT ION RATE- WESTE RGREN sedimentatio n rate-westerg felipa 3 mm/HR 0-15 normal Not Available [facility] [address] [facility], [place], [address], 04/11/2025 15:23:42 04/11/20 25 04/17/2025 METAN EPHRI ALVINA, FRAC. , PL. FREE normetanephr ine, pl 60.8 pg/mL 0.0-24 4.0 Not Available [facility] ([facility]) [address] [place], [address], 04/17/2025 20:05:47 04/11/2004/17/2025 METAN EPHRI ALVINA, FRAC. , PL. FREE metanephrine , pl 40.0 pg/mL 0.0-88 .0 Not Available [facility] ([facility]) [address] [place], [address], 04/17/2025 20:05:47 04/11/20 25 04/14/2025 AMBIG UOUS TEST ORDER ambiguous test order Commen t Attem pts to conta ct your facil ity to karley fy an ambig uous test order were unsuc cessf ul. Pleas e conta ct the labor atory to verif y the reque st. Speci mens are routi néstor held for 7 days from date of recei pt. Ambig uous test order : TEST: [id number] Tropo [place]ela [place] [id number] 0 Tropo angela T, [facility] Gener [employer] High[employer] y Sensi tive. Not Available [facility] ([facility]) [address] [facility], [place], [address], 04/17/2025 20:05:48 04/11/20 25 04/20/2025 WRBRISEYDA EN AUTHO RIZAT ION written authorizatio n Commen t Bala en Autho rizat ion Recei valeria. Autho rizat ion recei valeria from [employer]IGI NAL REQUI STION 04-20 Logge d by Tevin murillo Not Available [facility] ([facility]) [address] [facility], [place], [address], 04/20/2025 18:05:55 04/11/20 25 04/20/[address] PROBL EM request problem COMMEN T Test not perfo rmed. Speci men could not be locat ed. TEST: [id number] 0 Tropo angela T Not Available [facility] ([facility]) [address] [facility], [place], [address], 04/20/2025 18:05:56 06/10/20 23 06/05/2023 stres s echoc ardio gram No observ ation record ed. [email or web address] [facility] Card[facility] Diagnostic Testing [address], [place], [address], 06/10/2023 17:20:45 02/02/20 25 02/02/2025 elect rocar diogr am No observ ation record ed. [email or web address] In-Office Order Internal Use Only DO Not Attach Compendium DO Not Attach Compendium, Do Not Delete/merge, [id number] 02/02/2025 17:14:17 02/02/20 elect rocar diogr am No observ ation record ed. [email or web address] In-Office Order Internal Use Only DO Not Attach Compendium DO Not Attach Compendium, Do Not Delete/merge, [id number] 02/01/2025 11:27:20 02/02/2002/01/2025 XR, chest , 2 view Chest 2 Views Fronta l and Lat Reason : dyspne a COMPAR TRUDI: None. FINDIN GS: LINES AND TUBES: None. LUNGS AND PLEURA : Clear lungs. Normal pulmon ming vascul arity. No pleura l effusi on. No pneumo thorax . HEART, MEDIAS TINUM AND HIRAM: Heart is normal in size. Normal medias tinal and hilar contou r. BONES AND SOFT TISSUE S: No acute abnorm ality. IMPRES ION: No acute abnorm ality. WSN: [id number] Orderi ng Physic divine: Vi Hill Dictat ed By: Livan sanchez MD, Julian Johnson Dictat ed Date/T halina: 12:50 p Review ed By: Livan sanchez MD, Julian Johnson Signed By: Livan sanchez MD, Julian Johnson Signed Date/T halina: 12:50 pm Transc ribed By: CSB Transc ribed Date/T halina: 12:10 pm Patien t Class: Outpat ient [employer] (Outpt Imaging) [address] [facility] [place], [address], 02/08/2025 13:44:27 02/02/2002/01/2025 XR, chest , 2 view No observ ation record ed. [email or web address] [facility] [address] [place], [address], 02/04/2025 09:11:40 03/09/20 25 03/09/2025 stres s echoc ardio gram exerc ise (cont rast/ bubbl e PRN) No observ ation record ed. [facility] U/S Dept [address] [place], [address], 03/15/2025 10:59:28 03/11/20 25 03/09/2025 stres s echoc ardio gram No observ ation record ed. [facility] (Human Resources) [id number] [place], [address], 03/11/2025 16:49:54 05/20/20 25 05/13/2025 trans thora cic echoc ardio gram (TTE) compl ete (cont rast/ bubbl e/3D PRN) No observ ation record ed. [facility] [address] [place], [address], 06/16/2025 11:32:04 05/24/20 25 05/13/2025 US, echoc ardio gram No observ ation record ed. [facility] [address], [place], [address], 05/24/2025 16:13:33 06/02/2006/02/2025 ECG 12-le ad No observ ation record ed. [facility] [address] [facility] [place], [address], 06/03/2025 12:25:08 06/02/20 ECG 12-le ad No observ ation record ed. [facility] Dept [address] [facility] [place], [address], 06/03/2025 12:25:08 Result Notes Documentation Provider Name and Address Organization Details Recorded Time Xr, Chest, 2 View : Chest 2 Views Frontal and Lat Reason: dyspnea COMPARISON: None. FINDINGS: LINES AND TUBES: None. LUNGS AND PLEURA: Clear lungs. Normal pulmonary vascularity. No pleural effusion. No pneumothorax. HEART, MEDIASTINUM AND HIRAM: Heart is normal in size. Normal mediastinal and hilar contour. BONES AND SOFT TISSUES: No acute abnormality. IMPRESSION: No acute abnormality. WSN: [id number] Ordering Physician: Wily Hill Dictated By: Julian Decker MD, V Dictated Date/Time: 02/01/25 12:50 p Reviewed By: Julian Decker MD, V Signed By: Julian Decker MD, V Signed Date/Time: 02/01/25 12:50 pm Transcribed By: HAI Transcribed Date/Time: 02/01/25 12:10 pm Patient Class: Outpatient Wily Hill MD [address], [place], [address], [facility] 02/01/2025 15:26:46 Problems Name Problem SNOMED Code Status Onset Date Resolution Date Notes Provider Name and Address Organization Details Recorded Time Body mass index 25-29 - overweig ht [id number] Completed 06/25/2019 Removal Reason: DX changed Karla pires [facility] [place] 9 15:27:29 Follicul itis 46583912 Completed 07/09/2016 OFELIA Lomeli, [facility] 6 15:27:23 Elevated blood-pr essure reading without diagnosi s of hyperten ion 085977231 Completed 04/03/2018 Dev Holt MD [address] [facility] [address], [place], [address] , [facility] 8 14:00:34 Hemangio ma of face 429223821 Active Keyona Mello LPN null, [facility] 4 16:20:11 Fatigue 03197784 Completed 07/09/2016 Desmond ashford MA null, [facility] 6 15:27:55 Backache 800108096 Completed 07/09/2016 Desmond ashford MA null, [facility] 6 15:27:26 Essentia l hyperten ion 51577262 Active Keyona Mello LPN null, [facility] 4 16:20:11 Chest pain 08472883 Completed 200703/15/2014 RESOLVED DATE: 10/23/19 08; IMPRESSI ON: PROBABLY SIDE EFFECT FROM STIMULAN TS; RECORDED 10/23/19 08 1:34PM BY DEV HOLT MD, OFFICE VISIT Not Available [facility] 4 15:03:33 Chest pain 12616598 Completed 200704/04/2014 RESOLVED DATE: 10/23/19 08; IMPRESSI ON: PROBABLY SIDE EFFECT FROM STIMULAN TS; RECORDED 10/23/19 08 1:34PM BY DEV HOLT MD, OFFICE VISIT Not Available [facility] 4 06:58:40 Candidia sis of skin and nails Completed 200803/15/2014 RECORDED 04/07/20 09 4:48PM BY OFELIA GALDAMEZ, ANNOTATI ON/ADDEN DUM Not Available [facility] 4 15:03:33 Malaise and fatigue 217599080 Completed 200803/15/2014 RECORDED 04/07/20 09 4:48PM BY ARAMIS ROMANATI ON/ADDEN DUM Not Available [facility] 4 15:03:34 General examinat ion of patient Completed 200803/15/2014 RECORDED 04/07/20 09 4:48PM BY ARAMIS ROMANATI ON/ADDEN DUM Not Available [facility] 4 15:03:34 Glycosur ia 90457059 Completed 200803/15/2014 RECORDED 04/07/20 09 4:48PM BY ARAMIS ROMANATI ON/ADDEN DUM Not Available [facility] 4 15:03:34 Blood in urine 34157456 Completed 200803/15/2014 RECORDED 04/07/20 09 4:48PM BY ARAMIS ROMANATI ON/ADDEN DUM Not Available [facility] 4 15:03:34 Elevated level of transami nase and lactic acid dehydrog enase 555556182 Completed 200803/15/2014 RECORDED 04/07/20 09 4:48PM BY ARAMIS ROMANATI ON/ADDEN DUM Not Available [facility] 4 15:03:34 Viral disease 57066556 Completed 200803/15/2014 RECORDED 04/07/20 09 4:47PM BY ARAMIS ROMANATI ON/ADDEN DUM Not Available [facility] 4 15:03:35 Candidia sis of skin and nails Completed 200804/04/2014 RECORDED 04/07/20 09 4:48PM BY ARAMIS ROMANATI ON/ADDEN DUM Not Available [facility] 4 06:58:40 Malaise and fatigue 449314405 Completed 200804/04/2014 RECORDED 04/07/20 09 4:48PM BY ARAMIS ROMANATI ON/ADDEN DUM Not Available [facility] 4 06:58:40 General examinat ion of patient Completed 200804/04/2014 RECORDED 04/07/20 09 4:48PM BY OFELIA GALDAMEZ, ANNOTATI ON/ADDEN DUM Not Available [facility] 4 06:58:40 Glycosur ia 90516655 Completed 200804/04/2014 RECORDED 04/07/20 09 4:48PM BY OFELIA GALDAMEZ, ANNOTATI ON/ADDEN DUM Not Available [facility] 4 06:58:40 Blood in urine 68592153 Completed 200804/04/2014 RECORDED 04/07/20 09 4:48PM BY OFELIA GALDAMEZ, ANNOTATI ON/ADDEN DUM Not Available [facility] 4 06:58:41 Elevated level of transami nase and lactic acid dehydrog enase 462202355 Completed 200804/04/2014 RECORDED 04/07/20 09 4:48PM BY OFELIA GALDAMEZ, ANNOTATI ON/ADDEN DUM Not Available [facility] 4 06:58:41 Viral disease 25612689 Completed 200804/04/2014 RECORDED 04/07/20 09 4:47PM BY OFELIA GALDAMEZ, ANNOTATI ON/ADDEN DUM Not Available [facility] 4 06:58:41 Essentia l hyperten ion 85280846 Completed 201203/15/2014 RECORDED 10/01/19 13 1:31AM BY DEV HOLT MD, ANNOTATI ON/ADDEN DUM Not Available [facility] 4 15:03:34 Headache 07791107 Completed 201203/15/2014 RECORDED 10/01/19 13 1:31AM BY DEV HOLT MD, ANNOTATI ON/ADDEN DUM Not Available [facility] 4 15:03:34 Essentia l hyperten ion 81974161 Completed 201204/04/2014 RECORDED 10/01/19 13 1:31AM BY DEV HOLT MD, ANNOTATI ON/ADDEN DUM Not Available [facility] 4 06:58:40 Headache 84137003 Completed 201204/04/2014 RECORDED 10/01/19 13 1:31AM BY DEV HOLT MD, ANNOTATI ON/ADDEN DUM Not Available [facility] 4 06:58:41 Blood chemistr y outside referenc e range 218011638 Completed 201203/15/2014 RECORDED 10/29/19 13 1:25PM BY KULWANT ALVAREZ MA, ANNOTATI ON/ADDEN DUM Not Available [facility] 4 15:03:33 Inguinal hernia 951631987 Completed 201203/15/2014 RECORDED 10/29/19 13 1:25PM BY KULWANT ALVAREZ MA, ANNOTATI ON/ADDEN DUM Not Available [facility] 4 15:03:34 Knee pain Completed 201203/15/2014 IMPRESSI ON: S/P PLAYING INDOOR SOCCER 2 DAYS AGO WITHOUT KNOWN INJURY, LEFT KNEE XRAY NORMAL; RECORDED 10/29/19 13 1:25PM BY KULWANT ALVAREZ MA, ANNOTATI ON/ADDEN DUM Not Available [facility] 4 15:03:34 Disorder of bursa of shoulder region 72944650 Completed 201203/15/2014 RECORDED 10/29/19 13 1:25PM BY KULWANT ALVAREZ MA, ANNOTATI ON/ADDEN DUM Not Available [facility] 4 15:03:34 Pain in throat 784303807 Completed 201203/15/2014 STORY: CHRONIC THROAT CLEARING ; RECORDED 10/29/19 13 1:25PM BY KULWANT ALVAREZ MA, ANNOTATI ON/ADDEN DUM Not Available [facility] 4 15:03:35 Blood chemistr y outside referenc e range 747225806 Completed 201204/04/2014 RECORDED 10/29/19 13 1:25PM BY KULWANT ALVAREZ MA, ANNOTATI ON/ADDEN DUM Not Available [facility] 4 06:58:40 Inguinal hernia 963749288 Completed 201204/04/2014 RECORDED 10/29/19 13 1:25PM BY KULWANT ALVAREZ MA, ANNOTATI ON/ADDEN DUM Not Available [facility] 4 06:58:41 Knee pain Completed 201204/04/2014 IMPRESSI ON: S/P PLAYING INDOOR SOCCER 2 DAYS AGO WITHOUT KNOWN INJURY, LEFT KNEE XRAY NORMAL; RECORDED 10/29/19 13 1:25PM BY KULWANT ALVAREZ MA, ANNOTATI ON/ADDEN DUM Not Available [facility] 4 06:58:41 Disorder of bursa of shoulder region 99410038 Completed 201204/04/2014 RECORDED 10/29/19 13 1:25PM BY KULWANT ALVAREZ MA, ANNOTATI ON/ADDEN DUM Not Available [facility] 4 06:58:41 Pain in throat 997561654 Completed 201204/04/2014 STORY: CHRONIC THROAT CLEARING ; RECORDED 10/29/19 13 1:25PM BY KULWANT ALVAREZ MA, ANNOTATI ON/ADDEN DUM Not Available [facility] 4 06:58:41 Allergic rhinitis 21567892 Active 2012 ELMIRA Keller, [facility] 4 16:20:11 Adult health examinat ion Completed 201207/09/2016 OFELIA Lomeli, [facility] 6 15:27:36 Elevated blood-pr essure reading without diagnosi s of hyperten ion 396893697 Completed 201203/15/2014 STORY: STABLE BLOOD PRESSURE S OFF OF MEDICATI ONS.; RECORDED 02/09/20 13 3:54PM BY DESMOND OROZCO MA, ANNOTSONDRA ON/ADDEN DUM Dev Holt MD [address] [facility] [address], [place], [address] , [facility] 8 14:00:34 Risk of exposure to communic able disease 865099353 Completed 201203/15/2014 IMPRESSI ON: PRACTICE SAFER SEX; RECORDED 02/09/20 13 3:54PM BY DESMOND ROOZCO MA, ANNOTATI ON/ADDEN DUM Not Available [facility] 4 15:03:34 Exposure to organism Completed 201203/15/2014 RECORDED 02/09/20 13 3:54PM BY DESMOND OROZCO MA, ANNOTATI ON/ADDEN DUM Not Available [facility] 4 15:03:34 Hyperlip idemia 38640061 Active 2012 ELMIRA Keller, [facility] 4 16:20:11 Patient status finding 172719946 Completed 201207/09/2016 RECORDED 02/09/20 13 3:57PM BY DESMOND OROZCO MA, OFFICE VISIT OFELIA Lomeli, [facility] 6 15:27:20 Administ ration of diphther ia and tetanus vaccine Completed 201207/09/2016 OFELIA Lomeli, [facility] 6 15:27:48 Elevated blood-pr essure reading without diagnosi s of hyperten ion 402160135 Completed 201204/04/2014 STORY: STABLE BLOOD PRESSURE S OFF OF MEDICATI ONS.; RECORDED 02/09/20 13 3:54PM BY DESMOND OROZCO MA, ANNOTSONDRA ON/ADDEN DUM Dev Holt MD [address] [address], [facility] [place], [address] , [facility] 8 14:00:34 Risk of exposure to communic able disease 117994365 Completed 201204/04/2014 IMPRESSI ON: PRACTICE SAFER SEX; RECORDED 02/09/20 13 3:54PM BY DESMOND OROZCO MA, ANNOTSONDRA ON/ADDEN DUM Not Available [facility] 4 06:58:40 Exposure to organism Completed 201204/04/2014 RECORDED 02/09/20 13 3:54PM BY DESMOND OROZCO MA, ANNOTATI ON/ADDEN DUM Not Available [facility] 4 06:58:40 Child attentio n deficit disorder 780159705 Completed 201203/15/2014 RECORDED 02/10/20 13 1:01PM BY DEV HOLT MD, ANNOTATI ON/ADDEN DUM Not Available [facility] 4 15:03:33 Child attentio n deficit disorder 980004697 Completed 201204/04/2014 RECORDED 02/10/20 13 1:01PM BY DEV HOLT MD, ANNOTATI ON/ADDEN DUM Not Available [facility] 4 06:58:40 Stent in anterior descendi ng branch of left coronary artery 66931680432 9100 Active 2016 PCI with stent to LAD lesion (November 2016) ELMIRA Keller, [facility] 4 16:20:11 Coronary arterios clerosis in circle artery 01136484576 07 Active 2017 ELMIRA Keller, [facility] 4 16:20:11 Family history of cancer of colon 569069156 Active 2018 Keyona Mello LPN null, [facility] 4 16:20:11 Coronary atherosc lerosis 734427980 Active 2020 Keyona Mello LPN null, [facility] 4 16:20:11 History of polyp of colon 176383076 Active 2020 Keyona Mello LPN null, [facility] 4 16:20:11 COVID-19 792524380 Completed 202010/02/2020 dx'd in 11.20 - fully recovere d, no problems since Removal Reason: Problem marked historic al by user pmadden from the COVID-19 watch flag Shane Jeffery PA-C [address] [facility] [address], [place], [address] , [facility] 1 16:52:02 Body mass index 30+ - obesity 742683084 Active 2022 ELMIRA Keller, [facility] 4 16:20:11 Obesity 951163766 Active 2022 ELMIRA Keller, [facility] 4 16:20:11 Ascendin g aorta dilatati on 465793205 Active 2024 repeat echo 05/19/26 Wily Hill MD [address] [facility] [address], [facility] [place], [address] , [facility] 5 15:35:30 Problem Notes None recorded. Procedures Surgical History Date Name Laterality Status Provider Name and Address Organization Details Recorded Time 07/01/20 23 Colonoscopy completed Kamille Lino [facility] 07/01/2023 12:42:21 04/23/20 19 cardiac catheterization completed Desmond ferro MA [facility] 06/24/2019 16:23:27 12/21/19 17 placement of stent completed Desmond ferro MA [facility] 06/24/2019 16:14:08 12/21/19 17 angiography of coronary artery completed Desmond ferro MA [facility] 06/24/2019 16:14:41 12/21/19 17 cardiac catheterization completed Desmond ferro MA [facility] 06/24/2019 16:15:09 Vasectomy completed Desmond ferro MA [facility] 06/08/2015 15:38:47 Hernia Repair completed Clair Morrissey [facility] 05/20/2014 08:31:30 Imaging Results None recorded. Procedure Notes None recorded. Medical Equipment None Reported. Allergies Allergen ID Allergen Name Allergen Category Reaction Reaction Severity Criticality Documentation Date Start Date Code Code System Note Provider Name and Address Organization Details Recorded Time 53789 valsartan medicatio n respirato ry distress Not available Not available 01/22/2023 68849 RxNorm felt hot OFELIA Trujillo [facility] 3 10:03:30 Medications Name Sig Start Date Stop Date Status Note LastModified by Organization Details LastModified Time multivita min tablet Take 1 tablet every day by oral route. active Not Available Not Available No t Available atorvasta tin 40 mg tablet TAKE 1 TABLET BY MOUTH EVERY DAY IN THE EVENING active Not Available Not Available No t Available atorvasta tin 80 mg tablet Take 1 tablet every day by oral route for 30 days. 01/24 completed Not Available Not Available Not Available doxycycli ne hyclate 100 mg capsule Take 1 capsule twice a day by oral route for 7 days. active Not Available Not Available No t Available Saline Mist 0.65 % nasal spray aerosol SPRAY 1 SPRAY INTO EACH NOSTRIL DAILY IN THE MORNING active Not Available Not Available No t Available sildenafi l 50 mg tablet TAKE 1 TABLET BY MOUTH ONCE A DAY IF NEEDED active Not Available Not Available No t Available azithromy ganga 250 mg tablet TAKE 2 TABLETS BY MOUTH TODAY, THEN TAKE 1 TABLET DAILY FOR 4 DAYS 10/15 completed Not Available Not Available Not Available benzonata te 200 mg capsule TAKE 1 CAPSULE BY MOUTH THREE TIMES A DAY NEEDED FOR 5 DAYS 10/15 completed Not Available Not Available Not Available metoprolo l succinate ER 50 mg tablet,ex tended release 24 hr Take 1 tablet every day by oral route for 30 days. 01/24 completed Not Available Not Available Not Available methylphe nidate 10 mg tablet QD 11/02 completed RECORDED 04/03/20 09 1:05PM BY DEV HOLT MD, MEDICATI ON AUTO-MARIIA CTIVATIO N; Not Available Not Available Not Available lisinopri l 20 mg tablet TAKE 1 TABLET BY MOUTH EVERY DAY active Not Available Not Available No t Available Ginkoba 40 mg tablet Take 1 tablet every day by oral route. 07/09 completed Not Available Not Available Not Available methylphe nidate ER 54 mg tablet,ex tended release 24 hr QD 10/17 completed RECORDED 10/19/19 08 9:02AM BY VENANCIO Patel MD, MEDICATI ON AUTO-MARIIA CTIVATIO N; Not Available Not Available Not Available clopidogr el 75 mg tablet Take 1 tablet every day by oral route for 90 days. 10/31 /2019 completed Not Available Not Available Not Available fexofenad ine 180 mg tablet TAKE 1 TABLET BY MOUTH EVERY DAY active Not Available Not Available No t Available aspirin 81 mg tablet,de layed release TAKE 1 TABLET BY MOUTH EVERY DAY active Not Available Not Available No t Available amoxicill in 500 mg tablet 10/02 completed Not Available Not Available Not Available terbinafi ne HCl 250 mg tablet QD 2006 completed RECORDED 10/23/19 08 1:35PM BY OFELIA SOLANO, OFFICE VISIT;12 WEEK COURSE FOR TOENAILS . 6 WEEK COURSE FOR FINGERNA ILS. Not Available Not Available Not Available Fluticaso ne Propionat e (Inhal) 50 mcg/BLIST inhl powd QD, EACH NARES 11/02 completed RECORDED 11/03/19 11 10:35AM BY DESMOND OROZCO MA, OFFICE VISIT; Not Available Not Available Not Available betametha sone valerate 0.1 % topical cream APPLY A THIN LAYER TO THE AFFECTED AREA(S) BY TOPICAL ROUTE ONCE DAILY 10/15 completed Not Available Not Available Not Available benzonata te 100 mg capsule TAKE 1 CAPSULE BY MOUTH THREE TIMES A DAY NEEDED FOR COUGH 02/19 completed Not Available Not Available Not Available doxycycli ne monohydra te 100 mg capsule TAKE 1 CAPSULE BY MOUTH TWICE A DAY FOR 5 DAYS 02/19 completed Not Available Not Available Not Available lisinopri l 10 mg tablet Take 1 tablet every day by oral route for 90 days. 04/09 completed Not Available Not Available Not Available Ear Drops (carbamid e peroxide) 6.5 % INSTILL 5 DROPS INTO AFFECTED EAR(S) BY OTIC ROUTE 2 TIMES PER DAY USE FOR NO MORE THAN 4 DAYS 05/21 completed Not Available Not Available Not Available nitroglyc nicole 0.4 mg sublingua l tablet Place 1 tablet every day by sublingu al route as needed for 10 days. active Not Available Not Available No t Available omeprazol e 20 mg capsule,d elayed release TAKE 1 CAPSULE BY MOUTH EVERY DAY BEFORE A MEAL 2024 active Not Available Not Available Not Avai lable lisinopri l 5 mg tablet DAILY 06/22 completed RECORDED 06/22/20 09 8:16AM BY DESMOND OROZCO MA, OFFICE VISIT; Not Available Not Available Not Available metoprolo l succinate ER 25 mg tablet,ex tended release 24 hr TAKE 1 TABLET BY MOUTH EVERY DAY active Not Available Not Available No t Available ketoconaz ole 2 % topical cream APPLY 1 APPLICAT ION EVERY DAY BY TOPICAL ROUTE DIRECTED FOR 14 DAYS, FOR ARMPIT RASH active Not Available Not Available No t Available ipratropi um bromide 21 mcg (0.03 %) nasal spray USE 2 SPRAYS IN EACH NOSTRIL TWICE A DAY FOR 14 DAYS active Not Available Not Available No t Available Fish Oil 500 mg capsule Take 1 capsule every day by oral route. active Not Available Not Available No t Available ginkgo biloba 120 mg tablet Take 1 tablet every day by oral route. 06/24 completed Not Available Not Available Not Available valsartan 40 mg tablet TAKE 1 TABLET BY MOUTH TWICE A DAY 09/17 completed switched back to lisinopr il Not Available Not Available Not Available Vitamin D3 25 mcg (1,000 unit) capsule Take 1 capsule every day by oral route. active Not Available Not Available No t Available cyclobenz aprine 5 mg tablet Take 1 tablet 3 times a day by oral route as needed for 20 days. 07/09 completed Not Available Not Available Not Available Phillip MURPHYJAD QALeeanna 06/22 completed RECORDED 06/22/20 09 8:16AM BY DESMOND OROZCO MA, OFFICE VISIT; Not Available Not Available Not Available calcium 1 capsule daily active Not Available Not Available No t Available Vicodin EVERY 4-6 HOURS PRN PAIN 11/09 completed RECORDED 11/20/19 11 9:18AM BY SONIA LUGO PA-C, MEDICATI ON AUTO-MARIIA CTIVATIO N; Not Available Not Available Not Available Fish Oil DAILY 11/02 completed RECORDED 11/03/19 11 10:35AM BY DESMOND OROZCO MA, OFFICE VISIT; Not Available Not Available Not Available blood pressure monitor NA 10/17 completed RECORDED 04/03/20 09 1:05PM BY DEV HOLT MD, MEDICATI ON AUTO-MARIIA CTIVATIO N; Not Available Not Available Not Available Ginkoba 1 po daily 07/09 completed Not Available Not Available Not Available Calcium 500 + D 1 po daily 07/09 completed Not Available Not Available Not Available Simply Saline 0.9 % nasal spray aerosol Take 1 spray every day by nasal route in the morning for 30 days. 2024 active Not Available Not Available Not Avai lable methylphe nidate CD 50 mg biphasic 30-70 capsule,e xtended release QD 08/09 completed RECORDED 08/14/20 07 9:24AM BY DEV HOLT MD, MEDICATI ON AUTO-MARIIA CTIVATIO N; Not Available Not Available Not Available Prepopik 10 mg-3.5 gram-12 gram oral powder packet active Not Available Not Available Not Available Super B Maxi Complex 1 tab daily orally active Not Available Not Available No t Available Flonase Sensimist 27.5 mcg/actua tion nasal spray,rupinder pension TAKE 2 SPRAYS EVERY DAY BY NASAL ROUTE AT BEDTIME FOR 30 DAYS. active Not Available Not Available No t Available Clenpiq 10 mg-3.5 gram-12 gram/160 mL oral solution 10/02 completed Not Available Not Available Not Available Clenpiq 10 mg-3.5 gram-12 gram/175 mL oral solution TAKE 160 ML BY MOUTH DIRECTED USE DIRECTED BY PHYSICIA NS OFFICE INSTRUCT IONS 02/19 completed Not Available Not Available Not Available Vitals Date Recorded Body height Body mass index (BMI) Body weight Heart rate Oxygen saturation Oxygen saturation in Arterial blood by Pulse oximetry Body temperature Systolic And Diastolic Systolic And Diastolic Provider Name and Address Organization Details Last Updated DateTime 5 177.8 cm 32.1 kg/m2 414922. 69 g 68 /min 98 % 98 % 97.6 [degF] 132/77 mm[Hg] 128/76 mm[Hg] Desmond lisa MA [facility] 5 16:04:05 Date Recorded Body height Body mass index (BMI) Body weight Heart rate Oxygen saturation Oxygen saturation in Arterial blood by Pulse oximetry Body temperature Systolic And Diastolic Systolic And Diastolic Provider Name and Address Organization Details Last Updated DateTime 3 177.8 cm 32.7 kg/m2 598383. 06 g 93 /min 97 % 97 % 98.3 [degF] 152/85 mm[Hg] 158/96 mm[Hg] Frank Franklin MA [facility] 3 15:41:16 Date Recorded Body height Body mass index (BMI) Body weight Heart rate Oxygen saturation Oxygen saturation in Arterial blood by Pulse oximetry Body temperature Systolic And Diastolic Provider Name and Address Organization Details Last Updated DateTime 5 177.8 cm 32.3 kg/m2 391008. 28 g 69 /min 99 % 99 % 98.2 [degF] 129/77 mm[Hg] Desmond [facility] 5 11:04:07 Date Recorded Body height Body mass index (BMI) Body weight Heart rate Oxygen saturation Oxygen saturation in Arterial blood by Pulse oximetry Body temperature Systolic And Diastolic Provider Name and Address Organization Details Last Updated DateTime 4 177.8 cm 31.8 kg/m2 214106. 01 g 79 /min 97 % 97 % 98.1 [degF] 118/77 mm[Hg] Sonia Scott MA [facility] [place] 4 15:08:45 Date Recorded Body height Body mass index (BMI) Body weight Heart rate Oxygen saturation Oxygen saturation in Arterial blood by Pulse oximetry Body temperature Systolic And Diastolic Provider Name and Address Organization Details Last Updated DateTime 5 177.8 cm 32.4 kg/m2 624348. 88 g 70 /min 97 % 97 % 98 [degF] 125/75 mm[Hg] Desmond lisa MA [facility] 5 10:58:57 Social History Question Answer Notes LastModified by Organizat ion Details LastModified Time Tobacco Smoking Status Never Smoker Clair pires [facility] 05/20/2014 09:08:36 Do You Have An Advance Directive? Yes HCP [email or web address] Information not available 10/02/2020 Is Blood Transfusion Acceptable In An Emergency? Yes Information not available 06/08/2015 What Is Your Level Of Caffeine Consumption? Occasional Soda 1 Weekly Information not available 09/17/2024 How Much Tobacco Do You Chew? None Information not available 06/08/2015 What Type Of Diet Are You Following? REGULAR Information not available 06/08/2015 Which Illicit Or Recreational Drugs Have You Used? None Information not available 06/08/2015 Live Alone Or With Others? With Others With 2 Adult Kids nieves Information not available 02/20/2024 Do You Take Precautions To Prevent Distracted Driving? Yes Information not available 06/08/2015 How Often Do You Need To Have Someone Help You When You Read Instructions, Pamphlets, Or Other Written Material From Your Doctor Or Pharmacy? Never Information not available 06/08/2015 Have You Served In The ? Yes Information not available 07/09/2016 Have You Or Anyone In Your Household Had Any Of The Following Symptoms In The Last 14 Days: Sore Throat, Cough, Chills, Body Aches For Unknown Reasons, Shortness Of Breath For Unknown Reasons, Loss Of Smell, Loss Of Taste, Fever At Or Greater Than 100 Degrees Fahrenheit? No [email or web address] Information not available 10/02/2020 Are You Or Anyone In Your Household A Health Care Provider Or Emergency Responder? No [email or web address] Information not available 10/02/2020 To The Best Of Your Knowledge Have You Been In Close Proximity To Any Individual Who Tested Positive For COVID-19? No [email or web address] Information not available 10/02/2020 Have You Recently Traveled To A COVID-19 High Risk Area Or Gathering In The Last 10 Days? No [email or web address] Information not available 10/02/2020 What Was The Date Of Your Most Recent Tobacco Screening? 04/11/2025 Information not available 04/11/2025 How Many Children Do You Have? 4 Information not available 05/20/2014 Do You Use Protection During Sex? No Information not available 06/08/2015 Seat Belts Used Routinely Yes Information not available 06/08/2015 Are You Sexually Active? Yes Information not available 06/08/2015 Smoke Alarm In Home Yes Information not available 06/08/2015 At What Age Did You Start Smoking Tobacco? 0 Information not available 06/08/2015 Are You Passively Exposed To Smoke? No Information not available 06/08/2015 How Much Tobacco Do You Smoke? No Information not available 06/08/2015 Do You Use Sunscreen Routinely? Yes Information not available 06/08/2015 How Many Years Have You Smoked Tobacco? 0 Information not available 06/08/2015 Sex: Unknown Functional Status Question Answer Note LastModified by Organizat ion Details LastModified Time Do you use any illicit or recreational drugs? No Information not available 10/09/2021 Do you or have you ever used any other forms of tobacco or nicotine? No Information not available 10/09/2021 What is your level of alcohol consumption? Heavy Approximately 15 drinks per week Information not available 04/11/2025 Do you or have you ever used smokeless tobacco? Never used smokeless tobacco Information not available 06/24/2019 Are you currently employed? Yes Information not available 05/20/2014 Are you able to walk independently without assistance or assistive devices? YESWOREST Information not available 10/09/2021 Are you able to care for yourself independently? 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 Never used electronic cigarettes [email or web address] Information not available 10/02/2020 What is your exercise level? Moderate 5 x week; gym; treadmill and weights [email or web address] Information not available 10/15/2022 Mental Status None recorded. Family History Relationship Description Onset Age of this Age Resolved Age Notes LastModified by Organization Details LastModified Time Mother Diabetes mellitus [email or web address] Not available 2014 15:50:02 Mother Essential hypertension [email or web address] Not available 05/2018 13:30:23 Mother Malignant neoplasm of colon phelmuth Not available 2014 15:50:02 Mother Disorder of thyroid gland [email or web address] Not available 2022 15:55:10 Sister Carcinoma in situ of lung 48 abolcun Not available 05/2018 13:30:23 Maternal Aunt Diabetes mellitus phelmuth Not available 2014 15:50:02 Maternal Grandmother Congestive heart failure 58 abolcun Not available 2017 13:30:23 Brother Carcinoma in situ of lung 56 Stage 4 lung cancer Not available 08/31/2021 15:05:49 Notes:no fh prostate ca Medical History Condition Response Gout N Other N Kidney Stones N Blood Diseases N Hyperthyroidism N Breast Cancer N Hypothyroidism N Lung Disease N Depression N COPD N Defects or Inherited Disease N Anesthesia Complications N Headaches/Migraines N Anxiety Disorder N Varicose Veins N Obesity N Vision or Eye Problems N Arthritis N Head Injury/Concussion N Infertility N Polyps N Congenital Anomalies N Acid Reflux (GERD) N Cancer N Stroke N ADHD N Endometriosis N High Cholesterol N Liver Disease N Fibromyalgia N Kidney Disease N Heart Problems N Ear or Hearing Problems N Hospitalizations N Thyroid Problems N GI Problems N Acne N Eating Disorder N Skin Problems N Anemia N Constipation N Bladder Problems N Mental Illness N Diabetes N Ovarian Cancer N Blood Transfusions N Seizures/Epilepsy N Tuberculosis N AIDS/HIV N Congestive Heart Failure (CHF) N Eczema N Abuse/Domestic Violence N Diverticulitis N Asthma N Allergies N Reflux/GERD N Hepatitis N Pulmonary Embolism N Hypertension N Chicken Pox N Autism Spectrum Disorder (ASD) N Osteoporosis N Immunizations Vaccine Type Date Status Note Provider Nam e and Address Organization Details Recorded Time Influenza, split virus, trivalent, preservative 9 completed Not Available [facility] 07/30/2023 18:31:17 Tdap 3 completed Not Available [facility] 07/30/2023 18:31:17 Influenza, split virus, trivalent, preservative 5 completed Not Available [facility] 07/30/2023 18:31:17 Influenza, split virus, trivalent, preservative 9 completed Not Available [facility] 07/30/2023 18:31:17 Influenza, split virus, quadrivalent, PF 1 completed Not Available [facility] 07/30/2023 18:31:17 Influenza, split virus, quadrivalent, PF 9 completed Not Available [facility] 07/30/2023 18:31:17 Influenza, split virus, trivalent, preservative 6 completed Not Available [facility] 07/30/2023 18:31:17 COVID-19, mRNA, LNP-S, PF, 30 mcg/0.3 mL dose 1 completed Not Available [facility] 07/30/2023 18:31:17 Influenza, split virus, quadrivalent, preservative 7 completed Not Available [facility] 07/30/2023 18:31:17 COVID-19, mRNA, LNP-S, PF, 30 mcg/0.3 mL dose 1 completed Not Available [facility] 07/30/2023 18:31:17 Influenza, split virus, quadrivalent, PF 0 completed Not Available [facility] 07/30/2023 18:31:17 COVID-19, mRNA, LNP-S, PF, 100 mcg/0.5mL dose or 50 mcg/0.25mL dose 2 completed Not Available [facility] 07/30/2023 18:31:17 pneumococcal polysaccharide PPV23 2 completed Not Available [facility] 07/30/2023 18:31:17 zoster recombinant 2 completed Not Available [facility] 07/30/2023 18:31:17 zoster recombinant 2 completed Not Available [facility] 07/30/2023 18:31:17 Influenza, split virus, trivalent, preservative 4 completed Not Available [facility] 07/30/2023 18:31:17 influenza, unspecified formulation 2 completed Not Available [facility] 07/30/2023 18:31:17 Pneumococcal conjugate PCV20, polysaccharide [id number] conjugate, adjuvant, PF 3 completed OFELIA Huertas, [facility] 09/17/2024 15:21:20 Influenza, split virus, quadrivalent, PF 2 completed Not Available [facility] 07/30/2023 18:31:17 Influenza, split virus, trivalent, PF 4 completed OFELIA Huertas, [facility] 09/17/2024 15:21:32 Pneumococcal conjugate PCV20, polysaccharide [id number] conjugate, adjuvant, PF 3 completed Not Available [facility] 04/11/2025 10:11:34 zoster recombinant 2 completed Not Available [facility] 04/11/2025 10:11:34 Past Encounters Encounter ID Performer Location Encounter Start Date Encounter Closed Date Diagnosis/Indication Diagnosis SNOMED-CT Code Diagnosis ICD10 Code Diagnosis IMO Codes Diagnosis Note [id number] auto[facility]Comm erce [address] [facility] [place] [address] 06/18/2005 00:00:00 [id number] autoEComm erce [address] [facility] [place] [address] 06/18/2005 00:00:00 [id number] autoEComm erce [address] [facility] [place] [address] 11/05/2006 00:00:00 [id number] autoEComm erce [address] [facility] [place] [address] 11/05/2006 00:00:00 [id number] autoEComm erce [address] [facility] [place] [address] 11/05/2006 00:00:00 [id number] autoEComm erce [address] [facility] [place] [address] 02/09/2007 00:00:00 [id number] autoEComm erce [address] [facility] [place] [address] 07/10/2007 00:00:00 [id number] autoEComm erce [address] [facility] [place] [address] 07/10/2007 00:00:00 [id number] autoEComm erce [address] [facility] [place] [address] 07/10/2007 00:00:00 [id number] [address]Comm erce [address] [place] [address] 10/15/2007 00:00:00 [id number] autoEComm erce [address] [place] [address] 10/15/2007 00:00:00 [id number] autoEComm erce [address] [facility] [address] [place] [address] 10/23/2007 00:00:00 [id number] autoEComm erce [address] [facility] [address] [place] [address] 10/23/2007 00:00:00 [id number] autoEComm erce [address] [facility] [address] [place] [address] 10/23/2007 00:00:00 [id number] autoEComm erce [address] [facility] [place] [address] 12/10/2007 00:00:00 [id number] autoEComm erce [address] [facility] [place] [address] 04/04/2009 00:00:00 [id number] autoEComm erce [address] [facility] [place] [address] 04/04/2009 00:00:00 [id number] autoEComm erce [address] [facility] [place] [address] 04/04/2009 00:00:00 [id number] autoEComm erce [address] [facility] [place] [address] 04/04/2009 00:00:00 [id number] autoEComm erce [address] [facility] [address] [place] [address] 06/22/2009 00:00:00 [id number] autoEComm erce [address] [facility] [place] [address] 06/22/2009 00:00:00 [id number] autoEComm erce [address] [place] [address] 06/22/2009 00:00:00 [id number] autoEComm erce [address] [place] [address] 06/22/2009 00:00:00 [id number] autoEComm erce [address] [place] [address] 12/07/2009 00:00:00 [id number] autoEComm erce [address] [place] [address] 12/07/2009 00:00:00 [id number] autoEComm erce [address] [facility] [address] [place] [address] 12/07/2009 00:00:00 [id number] autoEComm erce [address] [facility] [place] [address] 12/07/2009 00:00:00 [id number] autoEComm erce [address] [facility] [place] [address] 11/02/2010 00:00:00 [id number] autoEComm erce [address] [facility] [address] [place] [address] 11/02/2010 00:00:00 [id number] autoEComm erce [address] [facility] [place] [address] 11/15/2011 00:00:00 [id number] autoEComm erce [address] [facility] [address] [place] [address] 11/15/2011 00:00:00 [id number] autoEComm erce [address] [facility] [address] [place] [address] 10/28/2012 00:00:00 [id number] autoEComm erce [address] [facility] [address] [place] [address] 10/28/2012 00:00:00 [id number] autoEComm erce [address] [place] [address] 10/28/2012 00:00:00 [id number] autoEComm erce [address] [facility] [place] [address] 02/08/2013 00:00:00 [id number] Dev Holt MD Main Office [address] [address] [place] [address] 05/20/2014 08:57:15 05/20/2014 09:57:38 Adult health examination 977459817 Body mass index 25-29 - overweight 354195744 [id number] Dev Holt MD Main Office [address] [address] [place] [address] 01/12/2015 10:08:21 01/12/2015 11:02:26 Family history of cancer of colon 702755192 Mother at age 71. Furuncle 843637837 Folliculitis 62168767 Exposure t o sexually transmissible disorder 944491042 [id number] Dev Holt MD Main Office [address] [address] [place] [address] 06/08/2015 15:25:26 06/08/2015 16:09:50 Adult health examination 000675632 Z00.00 Elevated blood-pressure reading without diagnosis of hypertension 834312224 R03.0 Hemangioma of face 91072 0006 D18.01 Hyperlipidemia 82192017 E78.5 Fatigue 53315957 R53.83 Body mass index 25-29 - overweight 621753111 Z68.29 [id number] Shane Jeffery PA-C Main Office [address] [address] [place] [address] 04/03/2016 14:53:56 04/03/2016 15:43:32 Backache 369542916 M54.9 pt defers PT at this time - demonstrat ed various exercises pt can perform at home Essential hypertension 33562969 I10 pt declines bp pill despite knowledge of bp trending high for quite some time -- pt states wishes to cont. to walk to lower his bp. advised to cut back on salt as well [id number] Dev Holt MD Main Office [address] [address] [place] [address] 04/26/2016 17:09:31 05/03/2016 12:26:39 [id number] Dev Holt MD Main Office [address] [facility] [address] [place] [address] 07/09/2016 15:06:21 07/09/2016 16:08:46 Adult health examination 972853277 Z00.00 Elevated blood-pressure reading without diagnosis of hypertension 694728396 R03.0 Blood pressure in the pre-hypert ensive range. Discussed management of cardiovasc ular risks and strategies to control BP. Hyperlipidemia 01375129 E78.5 Fatigue 81820033 R53.83 [id number] Shane Jeffery PA-C Main Office [address] [address] [place] [address] 09/05/2016 08:50:30 09/05/2016 09:55:20 Chest pain 58845045 R07.9 ekg was performed prior to provider entering room and speaking to pt - spoke c billing - will take off his bill. cp has not returned for past 3-4 wks - ? etiology but offered re-assuran ce that cp was not cardiac in origin given nl stress test, doubt gi related since no htbn hx, not aware of psychosoci al stressors so doubt that - cp could have been d/t mild costochond ritis since pt lifts wts 3 days / week - cp currently resolved Essential hypertension 97375434 I10 on new bp med - bp stable - heath. well, no throat clearing cough, cont. as dir - check bmp Skin lesion 47697413 L98 .9 on R delt area x 2, never seen by derm for skin check - will arrange [id number] Dev Holt MD Main Office [address] [address] [place] [address] 12/04/2016 10:19:05 12/04/2016 11:32:57 Chest pain on exertion 77058274 R07.89 [id number] Shane Jeffery PA-C Main Office [address] [address] [place] [address] 01/09/2017 09:45:04 01/09/2017 11:13:00 Fever 167020216 R50.9 ? viral illness in part p dehydratio n - ? lowered his immune system - ? strep, see below pt declined oow note Viral syndrome 069690265 B34.9 25 minute office visit with greater than 50% of the visit face-to-fa ce with the patient and/or family providing counseling and/or coordinati on of care. Essential hypertension 95315855 I10 mildly elevated but is ill - will cont to monitor Acute pharyngitis 336389 003 J02.9 ? viral pharyngiti s [id number] Shane Jeffery PA-C Main Office [address] [facility] [address] [place] [address] 11/19/2017 08:31:41 11/19/2017 09:35:35 Essential hypertension 91362490 I10 stable, cont meds as dir Stent in a nterior descending branch of left coronary artery 9885490910 32346 Z95.5 last seen by card 9.17 - encouraged pt to f/u c card - ? almost time to d/c plavix Impaired f asting glycemia 058248869 R73.01 Hyperbilirubinemia 83969 006 E80.6 ? most likely gilbert's Body mass index 30+ - obesity 028187716 Z68.31 Obesity 654331289 E66.9 Leukocytosis 145451074 D 72.829 most likely d/t fever at the time - will recheck [id number] Dev Holt MD Main Office [address] [facility] [address] [place] [address] 04/03/2018 13:27:44 04/03/2018 14:17:01 Adult health examination 768842534 Z00.00 Essential hypertension 22337322 I10 Hyperlipidemia 39659202 E78.5 Fatigue 18149601 R53.83 Stent in a nterior descending branch of left coronary artery 4049086972 54865 Z95.5 Coronary arteriosclerosis in circle artery 1776671300 107 I25.10 S/P stent to LAD in 2018. Continue secondary prevention [id number] Larry Peña MD Main Office [address] [facility] [address] [place] [address] 12/17/2018 11:25:19 12/17/2018 12:15:11 Reduced libido 9825726 R68.82 if testostero ne level low, will refer to endo for eval Essential hypertension 95928533 I10 stable, cont meds as dir, check bmp Hyperlipidemia 35819035 E78.2 cont statin, check lipids c cc: card Coronary arteriosclerosis in circle artery 6919830381 107 I25.10 cont meds, f/u c card Primary er ectile dysfunction 864050094 N52.9 [id number] Larry Peña MD Main Office [address] [facility] [address] [place] [address] 06/24/2019 15:56:17 06/24/2019 17:02:51 Adult health examination 229460910 Z00.00 Essential hypertension 96147072 I10 bp trending down, fort asymptomat ic, but to prevent orthostasi s rec cut lis 10mg in 08/26 == 5mg qd Hyperlipidemia 61027909 E78.2 cont statin, check lipids ac next ov Impaired f asting glycemia 562993618 R73.01 gluc 111 from card labs 04.22.19 -- had stable cr Gilbert's syndrome 95973 000 E80.4 offered reassuranc e Impacted c erumen of bilateral ears 6182041472 093565 H61.23 Family his tory of cancer of colon 583049284 Z80.0 next colon in .20 Coronary arteriosclerosis in circle artery 8323578406 107 I25.10 cont meds, f/u c card [id number] Larry Peña MD Main Office [address] [facility] [address] [place] [address] 10/02/2020 15:41:52 10/02/2020 16:56:57 Adult health examination 149960923 Z00.00 encouraged pt to go for outstandin g fasting labs as directed by PCP Essential hypertension 31096088 I10 bp stable, cont meds as dir Hyperlipidemia 59284607 E78.2 cont statin Impaired f asting glycemia 774076844 R73.01 pending get A1c Gilbert's syndrome 86286 000 E80.4 offered reassuranc e Coronary atherosclerosis 125704415 I25.10 s/p stent 12/09, cont f/u c card History of polyp of colon 791886675 Z86.010 next colon 8.23 Body mass index 30+ - obesity 749220503 E66.9 Varicella vaccination 68 082321 Z23 COVID-19 116289902 U07.1 dx'd in 11.20 - fully recovered, no problems since Impacted c erumen in left ear 2876220518 158617 H61.22 [id number] Wily Hill MD Main Office [address] [place] [address] 08/31/2021 11:29:13 09/03/2021 10:01:05 Family history of malignant neoplasm of lung 435177965 Z80.1 I discussed with Bryn the [place] PTF guidelines for screening for lung cancer and unfortunat louie he does not meet this criteria as he has never smoked in his lifetime despite being exposed to secondhand . However to provide some reassuranc e have ordered him a chest x-ray. Neck pain 08953499 M54.2 Although he denies and cp, shortness of breath or palpitatio n, given cardiac hx of stent and tingling sensation coming from Jaw to mid arm, I will order a stress echo, also advised him to follow up with with his cardiologi st and given that it has been over a year I have placed a new referral. Of course the other differenti al included cervicalgi a as there is history of strain from driving and thus since we are getting a chest x-ray I ordered a cervical spine x-ray to r/o any bony path. I also provided him with a physical therapy referral and some exercises. He currently denies any symptoms at this time and thus we will hold any muscle skeletal relaxant or analgesia. I discussed the limitation of a televisit and he understand . I will have him to come and see us as soon as possible and consider updated EKG. He denies any shortness of breath or chest pain on exertion and he exercises regularly with out difficulty thus given that I am reassured. Should he have any chest pain, shortness of breath he should report to emergency room immediatel y. Coronary atherosclerosis 912389616 I25.10 [id number] Wily Hill MD Main Office [address] [facility] [address] [place] [address] 10/09/2021 08:46:33 10/09/2021 10:33:47 Adult health examination 763268542 Z00.00 Patient was counseled on healthy diet, exercise and nutrition due to Body mass index is 31.1 kg/m . Last PSADate: 09/13/2021 esult: 1.8 Last Colonoscop y:Date: 04/12/2020R esult: 2 polypsPlan : Per GI screen 3yrs Vaccines:T dAP: 02/08/13Zos ter: script providedPC V13: not [id number]: Has CAD, provided todayInflu jay: 06/15/21Co vid: 12/04/20, 12/26/20 Routine labs done by cardiologi st, had repeat K+ still pending all other labs within range. Immunizati on status reviewed. Will screen based on risk factors. Regular dental and ophtho care advised as well as seat belt and sunscreen use. Distracted driving discussed. Medication reconciled . Varicella vaccination 68 256213 Z23 Administra tion of pneumococcal vaccine 39340640 Z23 Obesity 694166838 E66.9 - Diet and exercise discussed- Patient made aware of risks of obesity- Encouraged to loose weight. Goal set to loose weight at 1-1.5 Lbs/week- Avoid starchy and fatty food- Encouraged use of green vegetables and fruits Body mass index 30+ - obesity 075652426 E66.9 Impacted c erumen of bilateral ears 7320880662 249514 H61.23 Advised to avoid q-tip debrox sent [id number] Jcarlos Salas MD Main Office [address] [facility] [address] [facility] [place] [address] 04/09/2022 09:07:29 04/09/2022 09:47:41 Essential hypertension 16924453 I10 Good control, continue current mgmt. Coronary atherosclerosis 369083777 I25.10 Had stent placed x2 in 2017. On meds and followed by Dr Smith. Hyperlipidemia 13580028 E78.2 On meds and LDL at goal. HDL running low and advised aerobic exercise with a heart rate goal of 130. [id number] Tami Jeffery PA-C Main Office [address] [facility] [address] [place] [address] 05/21/2022 11:25:37 05/21/2022 11:58:58 Candidal intertrigo 610824103 B37.2 Begin use of ketoconazo le and betamethas one creams as directed daily. Avoid deodorants with aluminum. F/u as needed. [id number] Venancio musa MD Main Office [address] [facility] [address] [place] [address] 09/11/2022 13:06:46 09/11/2022 13:56:06 Acute pharyngitis 598864328 J02.9 With sore throat and dry cough consider atypical infection, will treat with zpack. Rest, hydration gargles Persistent cough 6504330 02 R05.3 Hydrate, see above, can use tessalon as needed Call if not better and would do cxr [id number] Wily Hill MD Main Office [address] [facility] [address] [facility] [place] [address] 10/15/2022 15:28:17 10/15/2022 16:29:23 Adult health examination 726612667 Z00.00 Patient was counseled on healthy diet, exercise and nutrition due to Body mass index is 32.7 kg/m . Last PSADate: 09/13/2021 esult: 1.8Plan: Does not wan to screen this year. Last Colonoscop y:Date: 04/12/2020R esult: 2 polypsPlan : Per GI screen 3yrs, referral placed for Aug. Vaccines:T dAP: 02/08/13, reminded he will need booster this year.Zoste r: 10/22/21, 02/20/22PCV 20: script providedPP SV23: 10/09/21Inf luenza: 05/24/22Cov id: 12/04/20, 12/26/20, 09/04/21, bivalent advised. Routine labs ordered Immunizati on status reviewed. Will screen based on risk factors. Regular dental and ophtho care advised as well as seat belt and sunscreen use. Distracted driving discussed. Medication reconciled . Administra tion of pneumococcal vaccine 79268094 Z23 Fatigue 32707776 R53.83 Z00.00 Hyperlipidemia 69834061 E78.5 Z00.00 Screening for malignant neoplasm of colon 925114788 Z12.11 Essential hypertension 80320273 I10 Was on usha not sure why stopped will do ARBAdvised labs in 2 weeks after starting.O therwise he is asymptomat ic.Low sodium diet discussed Counseled on medication adherence Counseled on diet/exerc ise Advised to keep BP daily BP log and technique counseled. Red flags of HTN emergency discussed and when to go to ED. Body mass index 30+ - obesity 418784564 Z68.30 E66.9 .obe Obesity 530690374 E66.9 Administra tion of viral vaccine 65871031 Z23 [id number] Wily Hill MD Main Office [address] [place] [address] 02/20/2024 14:55:58 02/20/2024 15:32:49 Adult health examination 485392139 Z00.00 Patient was counseled on healthy diet, exercise and nutrition due to Body mass index is 31.8 kg/m . Last PSADate: 09/13/2021 esult: 1.8Plan: wants to screen this year. Last Colonoscop y:Date: 07/01/23Res ult: polypsPlan : Per GI screen 3yrs Vaccines:T dAP: 02/08/13, reminded he will need booster this year.Zoste r: 10/22/21, 02/20/22PCV 20: 10/15/22PPS V23: 10/09/21Inf luenza: yearly flue encouraged Covid: encourage updated vaccine Routine labs ordered Immunizati on status reviewed. Will screen based on risk factors. Regular dental and ophtho care advised as well as seat belt and sunscreen use. Distracted driving discussed. Medication reconciled . Fatigue 97189442 R53.83 Z00.00 Hyperlipidemia [id number] E78.5 Z00.00 Essential hypertension [id number] I10 Body mass index 30+ - obesity 788296453 Z68.30 E66.9 Discussed diet, handout provided. Obesity 710305356 E66.9 Administra tion of viral vaccine 01248723 Z23 Nocturia 221006257 R35.1 Melanocyti c nevus of skin [id number] D22.9 [id number] Wily Hill MD Main Office [address] [facility] [address] [place] [address] 09/17/2024 15:11:38 09/17/2024 16:05:17 Essential hypertension 53227209 I10 Medication : Continue current blood pressure medication as it is effectivel y maintainin g normal blood pressure levels.. Lifestyle: Encourage weight loss through diet and exercise as well as limiting sodium intake. Candidal intertrigo 2661 61271 B37.2 Ketoconazo le Cream: Refill prescribed . Advise patient to continue applying ketoconazo le to the affected area as needed, following package instructio ns for applicatio n. Follow-Up: Recommend a follow-up visit with a dermatolog ist for a comprehens james skin evaluation and to discuss the persistent nature of the intertrigo rash. Skin Check: Since the patient is due for a routine skin check, reminded him of this. Intolerant of heat 88982 007 R20.8 Acknowledg ement of Symptoms: Acknowledg ed the patient s reports of feeling overheated without excessive sweating or elevated temperatur e. This symptom warrants further investigat ion. Pending Lab Work: Emphasized the importance of completing the pending lab tests to explore potential causes of his symptoms, such as thyroid function tests. If the initial lab results are normal, we will proceed with a comprehens james workup for potential sympatheti c overdrive, which may include further endocrine evaluation s and autonomic function tests. Follow-Up Appointmen t: Will follow up in November to discuss the results of the lab tests and assess his symptoms. If lab results are available sooner or symptoms worsen, an earlier appointmen t will be scheduled. [id number] Wily Hill MD Main Office [address] [facility] [address] [facility] [place] [address] 02/01/2025 10:23:42 02/01/2025 11:19:35 Intolerant of heat 82848456 R20.8 Coronary atherosclerosis 361269876 I25.10 Allergic rhinitis 698219 04 J30.9 [id number] Dyspnea 592367942 R06.00 [id number] Wily Hill MD Main Office [address] [facility] [address] [facility] [place] [address] 04/11/2025 10:09:51 04/11/2025 11:28:51 Dyspnea 036119261 R06.00 Intolerant of heat 04382 007 R20.8 Allergic rhinitis 755424 04 J30.9 [id number] Coronary arteriosclerosis in circle artery [id number] 107 I25.10 Esophagitis 36078077 K20 .90 8163 Health Concerns Section Related Observation LastModified by Organization Detai ls LastModified Time None Recorded Concern Status LastModified by Organization Details LastModified Time None Recorded Advance Directives Directive Y: HCP Payers Insurance Date Sequence Insurance Name Policy Number Policy Fox Covered Member ID Fox Member ID Guarantor Name 04/20/2025 1 [place] [id number] Bryn Carroin [id number] Bryn Carrion 02/20/2024 1 [id number] Bryn Carrion [id number] Bryn Carrion Notes Date Note Type Note Provider Name and Address Organization Details Recorded Time 10/15/2022 text/html Generic HPI TemplateReported by PatientROS as noted in the HPI Here for PE visit. Reviewed chronic medications and medical problems. Discussed screening guidelines as well as goals for fitness and weight management. Reviewed etoh intake CAGE 0. Wily Hill MD [address], [address], [facility] [place] 10/15/2022 16:13:32 02/20/2024 text/html Generic HPI TemplateReported by PatientROS as noted in the HPI Here for PE visit. Reviewed chronic medications and medical problems. Discussed screening guidelines as well as goals for fitness and weight management. Reviewed etoh intake CAGE 0. Wily Hill MD [address], [address], [facility] [place] 02/20/2024 15:26:52 09/17/2024 text/html Hypertension F/UReported by PatientHPIFor associated symptoms, patient reportsno dizziness,no lightheadedness,no chest pain,no shortness of breath,no palpitations,no edema, andno calf pain with exertion. For lifestyle, patient reportsregular exercise,limiting/avoi ding salt,exercises 5 times/week, andexercises for 15 minutes/day. For medications, patient reportstaking medications as directedandno side effects from medication.The patient presents today for a follow-up regarding his blood pressure management. Additionally, he reports improvement in his intertrigo rash following the use of ketoconazole. He mentions experiencing frequent episodes of feeling overheated, which has become a new concern. I advised him to continue using ketoconazole as needed and recommended consulting with a patient care for further evaluation, especially since he is due for a routine skin check. Regarding his symptoms of overheating, there are some pending lab tests that need to be completed. I plan to follow up with him in November to review his symptoms and any abnormal lab results that may explain these symptoms. Should there be any concerns prior to November, I will address them sooner. He agrees with this plan and will notify me if his symptoms worsen or if any other concerns arise. Wily Hill MD [address] [facility] [address], [place], [address], [facility] [place] 09/19/2024 00:04:54 02/01/2025 text/html The patient is a 59-year-old male with a history of coronary artery disease and prior stenting who presents with progressive symptoms over the past couple of years, described as a sensation of feeling hot and experiencing air hunger, particularly when someone is physically close to him. He states it feels as though s omeone is stealing his air. Symptoms are worse when lying on his back and improve when lying on his stomach or when in a cooler environment. He denies use of sildenafil in combination with nitroglycerin. He also denies chest pain, palpitations, flushing, fever, night sweats, muscle aches, rash, or anxiety. He reports that sleeping alone has not alleviated the symptoms. He denies diaphoresis or orthopnea but notes symptoms are positional and worsened in enclosed or close-contact settings. He additionally reports post-nasal drip at this visit and is inquiring about a safe medication option, particularly given his cardiac history. He denies a history of glaucoma. He also denies taking his B vitamin supplements recently. Wily Hill MD [address] [facility] [address], [place], [address], [facility] [place] 02/01/2025 12:45:38 04/11/2025 text/html The patient is a 59-year-old male with a history of coronary artery disease and prior stenting who presents for follow-up of persistent symptoms. He continues to report dyspnea and positional air hunger, worse when supine and improved when prone. He underwent a stress echocardiogram, which was reassuring without evidence of ischemia, though it was terminated early due to fatigue. Chest X-ray and completed Lab work was reassuring. The patient also reports intolerance to heat and ongoing right-sided chest discomfort that has been present intermittently for the past day. The pain is not reproducible on palpation, raising concern for atypical chest pain in the setting of CAD and dyspnea. He recently completed a 14-hour car ride on April 07, and although his Wells DVT score is 2 , his Wells PE score is 1.5. He was counseled on the need for further workup, including a stat D-dimer and a troponin (given his cardiac risk factors). He understands the limitations and has been advised to seek emergent evaluation if symptoms persist or worsen. He has not yet reached out to cardiology despite prior recommendations. Regarding allergic rhinitis/postnasal drip, he trialed nasal sprays inconsistently with minimal relief. Given fluctuating symptoms, he was prescribed Josselin for improved compliance. He also continues binge alcohol use on weekends (4 5 hard liquor drinks in one sitting). This may contribute to his symptoms. A trial of omeprazole 20 mg daily was initiated, with counseling on lifestyle and dietary modifications to reduce reflux-related symptoms. Wily Hill MD [address] [address], [place], [address], [facility] [place] 04/11/2025 12:30:39
--- OUTSIDE RECORDS SUMMARY | 2025-06-22 20:06 | XMS_ITS | Clinical Summary ---
Author Organization [facility] [employer] Address [address] [facility] [address] [place] [address] Phone Care Team Providers Care Kindergarten Instructional Assistant Name Role Phone Maxine Schmitz MD Primary Care Provider [phone] Allergies No known active allergies Medications lisinopriL (PRINIVIL,ZESTRIL ) 20 mg tabletIndications :Essential (primary) hypertension TAKE 1 TABLET BY MOUTH EVERY DAY 90 tablet 1 04/28/2025 Active metoprolol succinate (TOPROL-XL) 25 mg 24 hr tablet TAKE 1 TABLET BY MOUTH EVERY DAY 90 tablet 2 05/26/2025 Active atorvastatin (LIPITOR) 40 mg tablet Take 1 tablet (40 mg total) by mouth at bedtime. Active aspirin 81 mg EC tablet Take 1 tablet (81 mg total) by mouth 1 (one) time each day. Active Active Problems Problem Noted Date Diagnosed Date Coronary arteriosclerosis in kake artery 04/03 Assessment & Plan (06/02/2025 8:17 AM EDT): Patient has history of coronary artery disease status post stenting of the LAD in 2017. He had a stress echocardiogram completed 02/2025 which did not reveal any evidence of ischemia. He feels well and denies any exertional anginal symptoms. He continues on cardioprotective medical therapy with aspirin, beta-dorian and statin. I have reviewed with the patient the importance of a heart healthy lifestyle which includes eating a low-fat low-salt diet, getting regular exercise, maintaining a healthy weight, not smoking, and following up with routine medical care. Hyperlipidemia 02/08/2013 Assessment & Plan (06/02/2025 8:17 AM EDT): Patient's last LDL cholesterol 48. This is at goal. Continue with statin as prescribed. Essential hypertension 10/01/2012 Assessment & Plan (06/02/2025 8:17 AM EDT): Patient's blood pressure is under good control with a reading today of 132/78. He continues on metoprolol and lisinopril. No changes to his medical therapies at this time. Encounters Date Type Department Care Team Description 06/02/2025 7:40 AM EDT Office Visit [facility] Cardiology [facility] [address] [place] [address] Ericka Cm NP Coronary arteriosclerosis in kake artery (Primary Dx); Essential hypertension; Mixed hyperlipidemia 05/13/2025 7:00 AM EDT Ancillary Procedure [facility] Cardiology [facility] [address] [place] [address] Dyspnea from Last 3 Months Surgical History Surgery Date Site/Laterality Comments VASECTOMY PROCEDURE: ME VASECTOMY UNI/BI SPX W/POSTOP SEMEN EXAMS OTHER SURGICAL HISTORY PROCEDURE: HISTORY OTHER; COMMENT: Hernia Repair COLONOSCOPY 04/12/2020 PROCEDURE: HISTORICAL COLONOSCOPY; COMMENT: & Polypectomy OTHER SURGICAL HISTORY 04/23/2019 PROCEDURE: R HRT CATHETERIZATION CONGENITAL CARDIAC ANOMALY OTHER SURGICAL HISTORY 12/20/2016 PROCEDURE: R HRT CATHETERIZATION CONGENITAL CARDIAC ANOMALY OTHER SURGICAL HISTORY PROCEDURE: HISTORY OTHER; COMMENT: Coronary Angiography OTHER SURGICAL HISTORY 12/20/2016 PROCEDURE: SURGICAL STENT; COMMENT: Placement of Stent COLONOSCOPY 03/21/2015 PROCEDURE: HISTORICAL COLONOSCOPY; COMMENT: Dr. Manzano Medical History Medical History Date Comments Hemangioma of face DX:Hemangioma of face Allergic rhinitis DX:Allergic rh initis Furuncle DX:Furuncle IFG (impaired fasting glucose) D X:IFG (impaired fasting glucose) History of colon polyps 10/02/2020 DX:Histo ry of colon polyps Family history of colon cancer D X:Family history of colon cancer Obesity DX:Obesity Benign essential HTN DX:Benign e ssential HTN Family History Medical History Relation Name Comments Diabetes Aunt Mellitus Lung cancer Brother Stage 4 Other: Carcinoma in Situ of Lung Brother Heart failure Maternal Grandmother Diabetes Mother Mellitus Hypertension Mother Other: Malignant Tumor of Lung Mother Other: Carcinoma in Situ of Lung Sister Relation Name Status Comments Aunt Brother Maternal Grandmother Mother Sister Social History Tobacco Use Types Packs/Day Years Used Date Smoking Tobacco: Never Smokeless Tobacco: Never Alcohol Use Standard Drinks/Week Comments Yes 15 (1 standard drink = 0.6 oz pu re alcohol) occ Sex and Gender Information Value Date Recorded Sex Assigned at Not on file Legal Sex Male 3:35 AM EST Gender Identity Not on file Sexual Orientation Not on file Obstetrics History Last Filed Vital Signs Vital Sign Reading Time Taken Comments Blood Pressure 132/78 06/02/2025 8:15 AM EDT Pulse 66 06/02/2025 7:40 AM EDT Temperature - - Respiratory Rate - - Oxygen Saturation 96% 06/02/2025 7:40 AM EDT Inhaled Oxygen Concentration - - Weight 102 kg (225 lb) 06/02/2025 7:40 AM EDT Height 180.3 cm (5' 11 ) 06/02/2025 7:40 AM EDT Body Mass Index 31.38 06/02/2025 7:40 AM EDT Plan of Treatment Health Maintenance Due Date Last Done Comments Colorectal Cancer Screening: Colonoscopy 1967 Hepatitis B Vaccines (1 of 3 - 19+ 3-dose series) 1986 Cholesterol Screening (Lipid Panel) 07/28/2022 HIV Screening 07/28/2022 Hepatitis C Screening 07/28/2022 Social Influencers of Health Screening 07/28/2022 Hypertension/CHF/CAD Annual BMP Blood Test 08/04/2022 DTaP,Tdap,and Td Vaccines (2 - Td or Tdap) 02/08/2023 02/08/2013 Depression Screening 08/25/2024 COVID-19 Vaccine ( season) 2025 09/04/2021, 12/26/2020, 12/04/2020 Influenza Vaccine (#1) 2025 , 06/07/2022, 05/24/2022, Additional history exists RSV Immunization Adult Patients (1 - 1-dose 75+ series) 2042 Zoster Vaccines Completed 02/20/2022, 10/22/2021 Pneumococcal Vaccine: 50+ Years Completed 10/15/2022, 10/09/2021 HIB Vaccines Aged Out No longer eligi ble based on patient's age to complete this topic HPV Vaccines Aged Out No longer eligi ble based on patient's age to complete this topic Hepatitis A Vaccines Aged Out No long er eligible based on patient's age to complete this topic IPV Vaccines Aged Out No longer eligi ble based on patient's age to complete this topic MMR Vaccines Aged Out No longer eligi ble based on patient's age to complete this topic Meningococcal ACWY Vaccine Aged Out N o longer eligible based on patient's age to complete this topic Meningococcal B Vaccine Aged Out No l onger eligible based on patient's age to complete this topic RSV Immunization Patients Under 20 months Aged Out No longer eligible based on patient's age to complete this topic Varicella Vaccines Aged Out No longer eligible based on patient's age to complete this topic Procedures Procedure Name Priority Date/Time Associated Diagnosis Comments ECG 12-LEAD Routine 06/02/2025 8:17 AM EDT Coronary arteriosclerosis in kake artery TRANSTHORACIC ECHOCARDIOGRAM (TTE) COMPLETE W/ CONTRAST Routine 05/13/2025 7:29 AM EDT Dyspnea from Last 3 Months Results * ECG 12 lead (06/02/2025 8:17 AM EDT) Ventricular Rate ECG 65 BPM GEMUSE Atrial Rate 65 BPM GEMUSE P-R Interval 200 ms GEMUSE QRS Duration 108 ms GEMUSE Q-T Interval 390 ms GEMUSE QTc 405 ms GEMUSE P Wave [place] 58 degrees GEMUSE R [place] -39 degrees GEMUSE T [place] 50 degrees GEMUSE ECG Interpretation Normal sinus rhythm Left axis deviation Abnormal ECG No previous ECGs available Confirmed by Vera MCKEON JAMES ([id number]) on 06/02/2025 12:41:22 PM GEMUSE 06/02/2025 7:49 AM EDT 06/02/2025 12:41 PM EDT us Ericka Cm PLOW SHAKER ECG ORDERABLES Edited Resul t - Final GEMUSE * (ABNORMAL) TRANSTHORACIC ECHOCARDIOGRAM (TTE) COMPLETE W/ CONTRAST (05/13/2025 7:29 AM EDT) Left Atrium Minor [place] 6.2 cm CV PACS Left Atrium Major [place] 6.2 cm CV PACS LA Area Sys (A2C) 22 cm2 CV PACS LA Area Sys (A4C) 24 cm2 CV PACS LA Volume (BP) 71 mL CV PACS RA Area 15.6 cm2 CV PACS RA 2D Volume 33 mL CV PACS Aortic Sinus Valsalva 4.7 cm CV PACS Ascending Aorta 3.9 cm CV PACS IVSD 1.1(A) 0.6 - 1.0 cm CV PACS LVIDD 5.8 4.2 - 5.8 cm CV PACS LVIDS 3.5 2.5 - 4.0 cm CV PACS LVOT Diameter 2.5 cm CV PACS LVPWD 1.0 0.6 - 1.0 cm CV PACS MV E' Tissue Velocity Lateral 9 cm/s CV PACS MV E' Tissue Velocity Septal 6 cm/s CV PACS LVOT Area 4.9 cm2 CV PACS E Wave Deceleration Time 194 119 - 242 ms CV PACS MV Peak A Jun 0.60 m/s CV PACS MV Peak E Jun 0.50 m/s CV PACS RV Diastolic Basal Dimension 3.7 2.5 - 4.1 cm CV PACS RV S' 10 cm/s CV PACS TAPSE 17 mm CV PACS TR Peak Velocity 2.60 m/s CV PACS TR Peak Gradient 27 mmHg CV PACS E/E' Ratio Septal 8 CV PACS E/E' Ratio Averaged 7 CV PACS Relative Wall Thickness ratio 0.36 0.24 - 0.42 CV PACS FS 40 % CV PACS LV Mass 2D 249(A) 96 - 200 g CV PACS Ascending Aorta Index 1.75 cm/m2 CV PACS RA 2D Volume Index 15 18 - 32 mL/m2 CV PACS LVIDD Index 2.60 cm/m2 CV PACS LVIDS Index 1.57 cm/m2 CV PACS E/A Ratio 0.8 0.8 - 2.0 CV PACS E/E' Ratio Lateral 6 CV PACS LA Volume Index (BP) 31 mL/m2 CV PACS LV Mass Index 2D 111 50 - 102 g/m2 CV PACS BSA 2.27 m2 CV PACS Right Ventricular Peak Systolic Pressure 30 mmHg CV PACS Est. RA Pressure 3 mmHg CV PACS RV Free Wall Peak S' 10 cm/s CV PACS RA Major [place] 6.3 cm CV PACS RA Major [place] Index 2.8(A) 2.1 - 2.7 cm/m2 CV PACS MV PHT 56 ms CV PACS Anatomical Region Laterality Modality Ultrasound Narrative 05/20/2025 9:09 AM EDT Left ventricle cavity size is normal. Left ventricle wall thickness is normal. No regional LV wall motion abnormalities noted. Left ventricular systolic function is in the normal range with an ejection fraction of 55-60%. Right ventricle cavity is normal. Right ventricular systolic function is normal. Tricuspid Valve: Estimated RA pressure is 3 mmHg. The RVSP is estimated at 30 mmHg. The atria are normal in size. No hemodynamically significant valve disease. The Sinus of Valsalva is moderately dilated (4.7 cm). The ascending aorta is dilated (3.9 cm). Left Ventricle Left ventricle cavity size is normal. Wall thickness is normal. Systolic function is normal with an ejection fraction of 55-60%. There are no regional LV wall motion abnormalities. Indeterminate diastolic function. Right Ventricle Right ventricle cavity appears normal. Systolic function is normal. Left Atrium Left atrium cavity size is normal. Right Atrium Right atrium cavity is normal. IVC/SVC Inferior vena cava structure is normal. Mitral Valve Mitral valve structure is normal. There is trace regurgitation. There is no evidence of mitral valve stenosis. Tricuspid Valve The leaflets exhibit normal excursion. There is trace regurgitation. There is no evidence of tricuspid valve stenosis. Estimated RA pressure is 3 mmHg. The RVSP is estimated at 30 mmHg. Aortic Valve The aortic valve is trileaflet. There is trace regurgitation. There is no evidence of aortic valve stenosis. Pulmonic Valve Visualized portions of the pulmonic valve appear normal. There is no regurgitation or stenosis. Ascending Aorta The Sinus of Valsalva is moderately dilated (4.7 cm). The ascending aorta is dilated (3.9 cm). Pericardium Pericardium appears normal. There is no pericardial effusion. Study Details Overall the study quality was adequate. Definity contrast was given to enhance imaging. us Maxine Schmitz MD CV ECHO PROCEDURES Final Resul t from Last 3 Months Insurance [facility] Care Teams Kindergarten Instructional Assistant Relationship Specialty Start Date End Date Maxine Scmhitz MD [address] [facility] [address] [place] [address] PCP - General 09/11/21
== END 2025-06-22 16:05 | disposition home or self-care (01) ==
LOC: HO.RESP 16:04
PROVIDERS: PCP Family Medicine; Visit Provider Family Medicine
DX: R06.00 Dyspnea, unspecified (principal)
CPT/HCPCS: 94060; 94640; 94727; 94729

== ENCOUNTER → 2025-06-22 16:07 | Outpatient (BNV) | payer BC, SELFPAY | PROVIDERS: PCP Family Medicine; Visit Provider Internal Medicine Pulmonary Disease | DX: R05.9 Cough, unspecified (principal) | CPT/HCPCS: 94060; 94727; 94729 ==